=== PATIENT | male | born 1970 | race Caucasian/White ===

== ENCOUNTER → 2018-01-02 11:36 | Outpatient (CLI) | payer MEDICAID, SELFPAY ==
[2018-01-02 14:00] LABS: Erythrocyte Sedimentation Rate 1 mm/hr (0-15)
[2018-01-02 14:01] LABS: Absolute Lymphocyte Count 2.55 X10^3/ul (0.83-4.51); Absolute Neutrophil Count 3.6 X10^3/uL (2.0-7.7); Basophil# 0.02 X10^3/uL; Basophil% 0.3 % (0-1); Eosinophil# 0.25 X10^3/uL; Eosinophils% 3.6 % (0-5); Hematocrit 44.5 % (40-54); Hemoglobin 14.6 g/dl (13.0-16.5); Lymphocyte # 2.55 X10^3/ul (4.0); Lymphocyte % 36.2 % (19-41); Mean Corp Hgb Conc 32.8 g/gl (32-36); Mean Corpuscular Volume 91.4 fL (80-94); Mean Platelet Vol. 10.3 fl (6.2-12.0); Monocyte# 0.65 X10^3/uL; Monocyte% 9.2 % (0-10); Neutrophil # 3.56 X10^3/uL (2.7-7.7); Neutrophil % 50.6 % (47-70); Platelet Count 250 K/mm3 (150-450); RBC Distribution Width CV 13.7 % (11.6-14.6); Red Blood Count 4.87 M/mm3 (4.6-6.2)
[2018-01-02 14:02] LABS: POSITIVE COUNT NO; POSITIVE DIFFERENTIAL NO; POSITIVE MORPHOLOGY NO
[2018-01-02 14:25] LABS: Vitamin B12 328 pg/mL (211-911); Vitamin D,25 Hydroxy 16.5 ng/mL (29.95-100.01)
[2018-01-02 14:28] LABS: ALB/GLOB Ratio 1.2 RATIO (0.9-2.4); AST(SGOT) 20 U/L (15-37); Alanine Aminotransfer ALT/SGPT 26 U/L (16-61); Alkaline Phosphatase 48 U/L (45-117); Anion Gap 8 (5-15); BUN 15 mg/dL (7-18); BUN/Creat Ratio 15.9 RATIO (10-20); CRP < 2.90 mg/L (0.0-3.0); Calcium,Total 8.9 mg/dL (8.5-10.1); Chloride 106 mmol/L (98-107); Cholesterol 148 mg/dL (200); Creatinine, Serum 0.94 mg/dL (0.70-1.30); EST Glomerular Filtration Rate 91 mL/min (>60); Est Glom Filt Rate - Afr Amer 111 mL/min (>60); Globulin 3.3 g/dL (2.2-4.2); Glucose 65 mg/dL (74-106); High Density Lipoprotein 41 mg/dL; Potassium 3.9 mmol/L (3.5-5.1); Protein, Total 7.3 g/dL (6.4-8.2); Sodium Level 141 mmol/L (136-145); Triglycerides 92 mg/dL; Very Low Density Lipoprotein 18 mg/dL (5-40)
== END ==
PROVIDERS: Family Provider Family Medicine; PCP Family Medicine; Visit Provider Family Medicine
DX: R53.83 Other fatigue (principal); M79.7 Fibromyalgia; E66.9 Obesity, unspecified
CPT/HCPCS: 36415; 80053; 80061; 82306; 82607; 84443; 85025; 85652; 86140

== ENCOUNTER → 2018-01-30 19:50 | Outpatient (CLI) | payer MEDICAID, SELFPAY ==
[2018-01-24 12:27] VITALS: BMI 35.2
== END ==
PROVIDERS: Family Provider Family Medicine; PCP Family Medicine; Visit Provider Internal Medicine Critical Care Medicine
DX: G47.33 Obstructive sleep apnea (adult) (pediatric) (principal)
CPT/HCPCS: 95810

== ENCOUNTER → 2019-11-18 14:00 | Outpatient (CLI) | payer MEDICAID, SELFPAY ==
[2018-01-24 12:27] VITALS: BMI 35.2
[2019-11-18 17:12] LABS: ALB/GLOB Ratio 1.1 RATIO (0.9-2.4); AST(SGOT) 29 U/L (15-37); Alanine Aminotransfer ALT/SGPT 44 U/L (16-61); Albumin, Serum 3.9 g/dL (3.2-5.0); Alkaline Phosphatase 63 U/L (45-117); Anion Gap 5 (5-15); BUN 17 mg/dL (7-18); BUN/Creat Ratio 18.9 RATIO (10-20); CPK Total, Creatine Kinase 134 U/L (39-308); CRP < 2.90 mg/L (0.0-3.0); Chloride 106 mmol/L (98-107); EST Glomerular Filtration Rate 96 mL/min (>60); Est Glom Filt Rate - Afr Amer 116 mL/min (>60); Globulin 3.4 g/dL (2.2-4.2); Glucose 71 mg/dL (74-106); Potassium 4.2 mmol/L (3.5-5.1); Protein, Total 7.3 g/dL (6.4-8.2); Sodium Level 139 mmol/L (136-145); Thyroid Stim Hormone (TSH) 1.61 uIU/mL (0.358-3.74)
[2019-11-18 17:14] LABS: Absolute Neutrophil Count 3.9 X10^3/uL (2.0-7.7); Basophil# 0.05 X10^3/uL; Basophil% 0.7 % (0-1); Eosinophil# 0.39 X10^3/uL; Eosinophils% 5.5 % (0-5); Lymphocyte % 28.1 % (19-41); Mean Corp Hgb Conc 33.3 g/dL (32-36); Mean Corpuscular Hgb 31.4 pg (27.0-32.0); Mean Corpuscular Volume 94.1 fL (80-94); Mean Platelet Vol. 9.9 fl (6.2-12.0); Monocyte# 0.75 X10^3/uL; Monocyte% 10.5 % (0-10); NRBC Flagged by Analyzer 0 % (0-5); Neutrophil # 3.85 X10^3/uL (2.7-7.7); Neutrophil % 54.1 % (47-70); Platelet Count 280 K/mm3 (150-450); RBC Distribution Width CV 13.2 % (11.6-14.6); RBC Distribution Width SD 46.3 fl (35.1-43.9); White Blood Count 7.1 K/mm3 (4.4-11.0)
[2019-11-18 17:27] LABS: Erythrocyte Sedimentation Rate 3 mm/hr (0-15)
[2019-11-18 17:40] LABS: Vitamin B12 451 pg/mL (211-911); Vitamin D,25 Hydroxy 31.9 ng/mL
[2019-11-20 15:21] LABS: ANTINUCLEAR ANTIBODIES DIRECT Negative (Negative)
== END ==
PROVIDERS: PCP Family Medicine; Referring Provider Family Medicine; Visit Provider Family Medicine
DX: M62.81 Muscle weakness (generalized) (principal); R53.83 Other fatigue; M79.7 Fibromyalgia; E55.9 Vitamin D deficiency, unspecified
CPT/HCPCS: 36415; 80053; 82306; 82550; 82607; 84443; 85025; 85652; 86038; 86140

== ENCOUNTER → 2020-03-16 | Outpatient (CLI) | payer MEDICAID, SELFPAY | END | disposition home or self-care (01) | LOC: SL 21:28 | PROVIDERS: PCP Family Medicine; Visit Provider Internal Medicine Critical Care Medicine | DX: G47.33 Obstructive sleep apnea (adult) (pediatric) (principal) | CPT/HCPCS: 95811 ==

== ENCOUNTER → 2020-03-26 13:45 | Outpatient (CLI) | payer MEDICAID, SELFPAY | PROVIDERS: PCP Family Medicine; Visit Provider Nurse Practitioner Acute Care | DX: Z44.8 Encounter for fitting and adjustment of other external prosthetic devices (principal) ==

== ENCOUNTER → 2020-04-09 15:33 | Outpatient (CLI) | payer MEDICAID, SELFPAY ==
[2020-04-09 17:29] LABS: Absolute Lymphocyte Count 2.39 X10^3/uL (0.83-4.51); Absolute Neutrophil Count 3.3 X10^3/uL (2.0-7.7); Basophil# 0.03 X10^3/uL; Basophil% 0.4 % (0-1); Eosinophil# 0.27 X10^3/uL; Hematocrit 43.9 % (40-54); Hemoglobin 14.3 g/dL (13.0-16.5); Lymphocyte # 2.39 X10^3/ul (4.0); Lymphocyte % 35.3 % (19-41); Mean Corp Hgb Conc 32.6 g/dL (32-36); Mean Corpuscular Hgb 29.8 pg (27.0-32.0); Mean Corpuscular Volume 91.5 fL (80-94); Mean Platelet Vol. 9.7 fl (6.2-12.0); Monocyte% 10.3 % (0-10); NRBC Flagged by Analyzer 0 % (0-5); Neutrophil # 3.33 X10^3/uL (2.7-7.7); Neutrophil % 49.1 % (47-70); Platelet Count 254 K/mm3 (150-450); RBC Distribution Width CV 13.2 % (11.6-14.6); RBC Distribution Width SD 44.3 fl (35.1-43.9); White Blood Count 6.8 K/mm3 (4.4-11.0)
[2020-04-09 18:05] LABS: ALB/GLOB Ratio 1.2 RATIO (0.9-2.4); AST(SGOT) 24 U/L (15-37); Alanine Aminotransfer ALT/SGPT 34 U/L (16-61); Albumin, Serum 3.8 g/dL (3.2-5.0); Alkaline Phosphatase 74 U/L (45-117); Anion Gap 3 (5-15); BUN 19 mg/dL (7-18); BUN/Creat Ratio 19.3 RATIO (10-20); Calcium,Total 8.9 mg/dL (8.5-10.1); Chloride 105 mmol/L (98-107); Creatinine, Serum 0.98 mg/dL (0.70-1.30); EST Glomerular Filtration Rate 86 mL/min (>60); Est Glom Filt Rate - Afr Amer 104 mL/min (>60); Globulin 3.2 g/dL (2.2-4.2); Glucose 87 mg/dL (74-106); Potassium 4.1 mmol/L (3.5-5.1); Sodium Level 139 mmol/L (136-145)
[2020-04-09 18:35] LABS: Vitamin D,25 Hydroxy 30.3 ng/mL
== END ==
PROVIDERS: PCP Family Medicine; Referring Provider Family Medicine; Visit Provider Family Medicine
DX: E55.9 Vitamin D deficiency, unspecified (principal); Z72.0 Tobacco use
CPT/HCPCS: 36415; 80053; 82306; 85025

== ENCOUNTER 2020-06-21 20:13 | Inpatient (IN) | payer MEDICAID, SELFPAY ==
[2020-06-04 14:02] VITALS: BMI 38.7
[2020-06-21] VITALS (10 sets, daily range): BP systolic 103–132; BP diastolic 84–113; PULSE 106–116; RESP 11–30; TEMP 36.2–36.4; O2SAT 93–100; BMI 39.0; BMI 38.0
--- NOTE | 2020-06-21 20:20 | EKG12_ITS ---
Test Reason : CP Blood Pressure : / mmHG Vent. Rate : 108 BPM Atrial Rate : 108 BPM P-R Int : 192 ms QRS Dur : 104 ms QT Int : 330 ms P-R-T Axes : 069 116 054 degrees QTc Int : 442 ms Sinus tachycardia Left posterior fascicular block Abnormal ECG Confirmed by JUAN ALBERTO REBOLLEDO, CHUCK ([id number]), development editor ARSH VALDEZ ([id number]) on 06/24/2020 8:50:32 AM Referred By: KHOI Confirmed By:CHUCK AVEDNANO MD
--- NOTE | 2020-06-21 20:22 | ED.VIS.GEN ---
History of Present Illness Chief Complaint: Shortness of Breath Informant: Patient Onset: Today Context: Sudden Onset Current Severity: Moderate Maximum Severity: Moderate Narrative: Patient presents with sudden onset of shortness of breath approximately 1 hour prior to arrival. He denies chest pain. He states he was taking the trash out at the time, nothing overtly strenuous. Patient denies history of lung problems. He is a longtime smoker. No history of blood clots, but does state that his right lower leg has been swollen and sore recently. - Past Medical History (1) Bipolar 1 disorder, depressed Status: Chronic (2) Fibromyalgia Status: Chronic (3) GEOFF (generalized anxiety disorder) Status: Chronic (4) FERNANDO (obstructive sleep apnea) Status: Chronic Past Medical History - Allergies and Home Meds Allergies/Adverse Reactions: Allergies No Known Allergies Allergy (Verified 06/21/20 20:15) Primary Care Physician: Elliott Urbina MD [Primary Care Provider] - Prior records reviewed: Yes Smoking Status: Current some day smoker Review of Systems General: Denies: Chills, Fever Eyes: Denies: Visual changes - bilaterally ENT: Denies: Bilateral ear pain Cardiovascular: Denies: Chest pain Respiratory: Reports: Dyspnea. Denies: Cough Gastrointestinal: Denies: Abdominal pain, Nausea, Vomiting, Diarrhea Musculoskeletal: Reports: Swelling, Extremity Pain Skin: Denies: Rash Neurological: Denies: Headache Hematologic: Denies: Easy bruising, Easy bleeding Allergy: Denies: Uticaria Physical Exam Vital Signs/Narrative: Vital Signs Temp Pulse Resp BP Pulse Ox 06/21/20 20:15 97.6 F L 106 H 20 H 132/95 H 93 Inital Vital Signs reviewed: Yes General: Well nourished, Well developed Head: Normocephalic Neck: Supple Cardiovascular: Tachycardia Respiratory: Diminished Abdomen: Soft, Nontender Extremities: Edema - Mild edema right lower extremity Neurological: Alert, Oriented x3 Psychological: Normal affect Diagnostic/Tx/Re-eval Chest X-Ray - ED: 1 View, Read by ED Physician, Normal, Heart, Lungs, Mediastinum 06/21/20 20:35 Chest 1 View (Portable) [RAD] Stat 06/21/20 20:50 CTA Chest W/WO Contrast [CT] Stat Laboratory Results 06/21/20 06/21/20 20:20 20:20 WBC 7.5 RBC 5.08 Hgb 15.1 Hct 47.3 MCV 93.1 MCH 29.7 MCHC 31.9 L RDW Std Deviation 44.4 H RDW Coeff of Scarlet 13.0 Plt Count 224 MPV 9.3 Immature Gran % (Auto) 0.800 Neut % (Auto) 56.8 Lymph % (Auto) 28.6 [place] % (Auto) 11.7 H Eos % (Auto) 1.7 Baso % (Auto) 0.4 Absolute Neuts (auto) 4.3 Absolute Lymphs (auto) 2.15 Nucleated RBC % 0 Sodium 139 Potassium 4.7 Chloride 107 Carbon Dioxide 29.0 Anion Gap 3 L BUN 15 Creatinine 1.03 Estim Creat Clear Calc 96.27 Est GFR (MDRD) Af Amer 99 Est GFR (MDRD) Non-Af 82 BUN/Creatinine Ratio 14.6 Glucose 94 Calcium 8.9 Troponin I 0.068 H - EKG Initial EKG Interpretation: Sinus Tachycardia - Sinus tach at 108. No acute ST change. - Medical Decision Making Patient had portable chest x-ray obtained on arrival. Per my interpretation no obvious abnormality noted. Due to the patient's rather abrupt onset of symptoms PE was certainly in the differential, especially with patient complaining of right leg pain and swelling the last several days. Lab work was obtained and renal function was adequate. CTA reveals evidence of saddle embolus with bilateral main branch PEs per my interpretation. Heparin bolus and drip have been ordered. I will speak with hospitalist regarding admission. - Critical Care Time Critical care time (excluding procedures): 30-74 minutes ED Disposition - Plan for ED Patient: Disposition: Acute Care Hospital [facility] Diagnosis: Pulmonary emboli Referrals: Elliott Urbina MD [Primary Care Provider] -
--- NOTE | 2020-06-21 20:35 | RAD_ITS ---
STUDY: X-RAY CHEST REASON FOR EXAM: Male, 50 years old. sob TECHNIQUE: Single AP portable view of the chest. COMPARISON: None. FINDINGS: The lungs are clear and expanded. There is no demonstrated pleural abnormality. Normal size heart. Normal mediastinum and louis. Normal visualized pulmonary arteries. Normal visualized aortic arch and descending thoracic aorta. Normal visualized thoracic spine. Normal visualized ribs, clavicles, and shoulders. There is no demonstrated abnormality of the visualized soft tissue structures of the upper abdomen. RAD/Chest 1 View (Portable) IMPRESSION: Normal x-ray examination of the chest. Electronically Signed: Debra Hernandez MD at 21:22 EDT Tel , Service support ,
[2020-06-21] MEDS: 0.9% Normal Saline 1,000 ML 150 ML IV (20:43)
[2020-06-21 20:46] LABS: Anion Gap 3 (5-15); BUN 15 mg/dL (7-18); BUN/Creat Ratio 14.6 RATIO (10-20); Calcium,Total 8.9 mg/dL (8.5-10.1); Chloride 107 mmol/L (98-107); Creatinine, Serum 1.03 mg/dL (0.70-1.30); EST Glomerular Filtration Rate 82 mL/min (>60); Est Glom Filt Rate - Afr Amer 99 mL/min (>60); Estimated Creatinine Clearance 96.27 ml/min; Glucose 94 mg/dL (74-106); Potassium 4.7 mmol/L (3.5-5.1); Sodium Level 139 mmol/L (136-145)
--- NOTE | 2020-06-21 20:50 | CT_ITS ---
We are attempting to reach an attending provider to discuss findings. An addendum with communication details will be sent when the communication is complete. STUDY: CTA CHEST REASON FOR EXAM: Male, 50 years old. sob RADIATION DOSAGE (If Supplied By Facility): CTDIvol = ( 18.60 ) mGy, DLP = ( 628.51 ) mGycm TECHNIQUE: The examination was performed with the intravenous administration of IV 100mL Isovue-370. Post-processing of the angiographic images was performed, with multiplanar reformation and 3D reconstruction. Individualized dose optimization techniques were used for this CT. COMPARISON: None. FINDINGS: Heart size and pericardium are unremarkable. The aorta is normal in caliber. No aneurysm or dissection. There is no mediastinal mass or adenopathy. There is no hilar or axillary adenopathy. Sagittal pulmonary embolus. Moderately extensive segmental and subsegmental emboli in the left lower lobe. Mild subsegmental emboli in the left upper lobe. Extensive vascular cut off in the right upper lobe. Mild subsegmental emboli in the right middle lobe. Mild right lower lobe segmental emboli. There is no pleural effusion. There is no pulmonary consolidation mass, interstitial or cystic disease. Calcified granulomas in the right upper lobe. Visualized abdomen is unremarkable. There is no osseous abnormality. CT/CTA Chest W/WO Contrast IMPRESSION: 1. Extensive bilateral pulmonary emboli including saddle embolus. 2. Old granulomatous disease. Electronically Signed: Debra Hernandez MD at 21:26 EDT Tel , Service support ,
[2020-06-21 20:52] LABS: Absolute Lymphocyte Count 2.15 X10^3/uL (0.83-4.51); Absolute Neutrophil Count 4.3 X10^3/uL (2.0-7.7); Basophil# 0.03 X10^3/uL; Basophil% 0.4 % (0-1); Eosinophil# 0.13 X10^3/uL; Eosinophils% 1.7 % (0-5); Hematocrit 47.3 % (40-54); Hemoglobin 15.1 g/dL (13.0-16.5); Lymphocyte # 2.15 X10^3/ul (0.83-4.51); Lymphocyte % 28.6 % (19-41); Mean Corp Hgb Conc 31.9 g/dL (32-36); Mean Corpuscular Hgb 29.7 pg (27.0-32.0); Mean Corpuscular Volume 93.1 fL (80-94); Mean Platelet Vol. 9.3 fl (6.2-12.0); Monocyte# 0.88 X10^3/uL; Monocyte% 11.7 % (0-10); NRBC Flagged by Analyzer 0 % (0-5); Neutrophil # 4.28 X10^3/uL (2.7-7.7); Neutrophil % 56.8 % (47-70); Platelet Count 224 K/mm3 (150-450); RBC Distribution Width SD 44.4 fl (35.1-43.9); Red Blood Count 5.08 M/mm3 (4.6-6.2); White Blood Count 7.5 K/mm3 (4.4-11.0)
[2020-06-21] MEDS: Heparin Injection (Vial) 5,000 UNIT/ML VIAL 4000 UNIT IV (21:15)
[2020-06-21] MEDS: HEPARIN/D5w 25,000 UNITS 25,000 UNITS/250 ML IV.SOLN. 10 UNITS IV (21:15)
--- NOTE | 2020-06-21 21:24 | HP.PCM_ITS ---
Problem List (1) Pulmonary emboli Status: Acute Qualifiers: Pulmonary embolism type: saddle Chronicity: acute Acute cor pulmonale presence: unspecified Qualified Code(s): I26.92 - Saddle embolus of pulmonary artery without acute cor pulmonale (2) FERNANDO (obstructive sleep apnea) Status: Chronic (3) BMI 38.0-38.9,adult Status: Chronic (4) Fibromyalgia Status: Chronic (5) Bipolar 1 disorder, depressed Status: Chronic (6) Tobacco use Status: Chronic History of Present Illness Date of Admission: 06/21/20 Chief Complaint: Sudden onset dyspnea, hx LE edema ~ 1 month prior The patient is a 50 y/o M w/ PMHx: Obesity, FERNANDO, Anxiety and Depression/Bipolar disorder, Tobacco use who presents to the [facility] ED on 06/21/20 with history of onset RLE edema starting ~ 1 month prior and worsening over the last week but suddenly improving with over the last 30 minutes to 1 hour prior to ED arrival sudden onset severe dyspnea sensation, unable to catch his breath with occasional twinge to the right chest with deep inspiratory effort with a sensation of tightness when he tries to breathe deep with no specific chest discomfort however given not improving prompted ED evaluation. He denies any recent illness including any Covid type symptoms. He has not had any recent prolonged flights or car travel. 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 He does smoke 1/2 to 1 pack/day. He has no specific family history of clots and has never had a clot previously himself. Work-up in the ED included T 97.7, heart rate 116, BP 132/95, respiratory rate 30, 93% on room air with improvement to 99% on 2 L nasal cannula, CBC with WBC 7.5, hemoglobin 15.1, platelet 224 without marked shift, PTT pending, BMP not marked appearing, troponin 0 0.068, chest x-ray with no acute cardiopulmonary findings, CTPA pending radiology evaluation but ED interpretation with evidence of a saddle pulmonary embolus with bilateral main branch PEs, EKG with sinus tachycardia with no acute evidence of ischemia. In the ED patient initiated on heparin bolus with drip. Discussed with the ED physician and hypercoagulable panel obtained in the ED. Past Medical History Past Medical History (Chronic Problems): Chronic Problems (Last Reviewed 06/04/20 @ 14:08 by Radha Donovan [employer], [employer]) Tobacco use (Chronic) FERNANDO (obstructive sleep apnea) (Chronic) BMI 38.0-38.9,adult (Chronic) Sleep apnea (Chronic) Fibromyalgia (Chronic) Insomnia (Chronic) Bipolar 1 disorder, depressed (Chronic) GEOFF (generalized anxiety disorder) (Chronic) Arthritis (Chronic) Medical History: Medical History (Last Reviewed 06/04/20 @ 14:08 by Radha Donovan [employer], [employer]) Sleep apnea (Chronic) G47.30 Fibromyalgia (Chronic) M79.7 Vitamin D deficiency (Acute) E55.9 Insomnia (Chronic) G47.00 Bipolar 1 disorder, depressed (Chronic) F31.9 GEOFF (generalized anxiety disorder) (Chronic) F41.1 Microscopic colitis (Acute) K52.839 Arthritis (Chronic) M19.90 Fatigue (Acute) R53.83 Shoulder pain (Acute) M25.519 Difficulty balancing (Acute) R29.818 Limb weakness (Acute) R29.898 neck and back pain (Acute) Allergies No Known Allergies Allergy (Verified 06/21/20 20:15) Home Medications: Ambulatory Orders Medication Instructions Recorded ibuprofen 600 mg tablet 600 mg PO TID PRN 30 Days #90 tab 11/28/17 cholecalciferol (vitamin D3) 125 5,000 unit PO DAILY 01/23/18 mcg (5,000 unit) capsule nortriptyline 10 mg capsule 25 mg PO QHS 01/23/18 Nortriptyline HCl 50 mg PO TID 06/21/20 Surgical History: Surgical History (Last Reviewed 06/04/20 @ 14:08 by Radha Donovan [employer], [employer]) History of cholecystectomy (Resolved) Z90.49 History of tooth extraction (Resolved) K08.409 Surgical History: cholecystectomy Psychiatric History: Anxiety, Bipolar, Depression Lives: Alone Smoking Status: Current every day smoker - Patient with ongoing 1/2 pack to 1 pack/day cigarette tobacco usage since she was a teenager. Tobacco Use: Cigarettes Alcohol: Occasional Drugs: None - *Family History Maternal Family History: Family History (Last Reviewed 06/04/20 @ 14:08 by Radha Donovan [employer], [employer]) Other No pertinent family history History Items: Cancer - Patient with maternal family history of leukemia, in her 60s. Paternal Family History: Family History (Last Reviewed 06/04/20 @ 14:08 by Radha Donovan [employer], [employer]) Other No pertinent family history History Items: Diabetes - Paternal family history prediabetes., - - Paternal family history of significant vertigo, BPPV. Review of Systems Constitutional: Reports: Fatigue. Denies: Anorexia, Chills, Fever, Malaise, Weakness, Weight Change HEENT: Denies: Head Aches, Sinus Congestion, Sinus Drainage Cardiovascular: Reports: Chest Tightness, Edema. Denies: Chest Pain, Chest Pressure, Light Headedness, Orthopnea, Palpitations, Syncope Respiratory: Reports: Shortness of Breath, Shortness of breath at rest, Shortnes s of breath upon exertion. Denies: Cough, Sputum production, Wheezing Gastrointestinal: Denies: Abdominal Pain, Nausea, Vomiting Genitourinary: Denies: Dysuria Musculoskeletal: Reports: Joint Pain. Denies: Joint Tenderness Skin: Denies: Rash, Wounds Neurological: Denies: Numbness, Tingling, Focal weakness Psychiatric: Reports: Anxiety, Depression. Denies: Homicidal Ideations, Suicidal Ideations Hematologic/ Lymphatic: Denies: Easy Bruising, Easy Bleeding VTE Information - Inpt Only VTE Present on Admission: No VTE Mechan Device Prophylaxis: SCD's VTE Pharm Prophylaxis ordered?: Yes Patient Problems: Active and Suspected Problems (Last Reviewed 06/04/20 @ 14:08 by Radha Donovan [employer], [employer]) Pulmonary emboli (Acute) Subjective: Patient seated upright in the ED bed, fatigued otherwise no acute distress. Objective: Physical Examination: General: awake, alert, oriented x 3 and cooperative, seated upright in the ED bed, fatigued otherwise no acute distress, no evidence of any respiratory distress. Skin: normal color, turgor, no icterus, cyanosis. HEENT: AT/NC, EOMI, PERRLA, MMM, no carotid bruits or JVD noted; however, thickened neck makes examination difficult. Lungs: CTA bilaterally, moderate effort, mild decrease BL bases, no rales, ronchi or wheezing. Heart: Mildly tachycardic with regular rhythm; no gallop, rub audible. Abdomen: soft, obese, NTTP, ND, normal BS, no obvious HSM; however, habitus makes examination difficult. Extremities: no cyanosis or clubbing, improved right lower extremity swelling, nonpitting. Neurological: patient awake, alert, oriented as noted; cognitive function intact; pupils equally reactive to light and accomodation; cranial nerves II-XII grossly normal, moving all 4 extremities, no focal deficits, strength moderately to severely global decrease secondary to acute presentation. Psychiatric: affect appears fatigued otherwise normal, no acute evidence of depressive or anxiety feelings. - Physical Exam Vitals/I&O's: Vital Signs Temp Pulse Resp BP Pulse Ox 97.6 F L 107 H 19 H 130/100 H 99 06/21/20 20:15 06/21/20 21:16 06/21/20 21:16 06/21/20 21:16 06/21/20 21:16 Oxygen Flow Rate (L/min) 2 Oxygen Delivery Method Nasal Cannula Weight: 287 lb 14.779 oz Body Mass Index (BMI) 39.0 Laboratory Results 06/21/20 20:20: WBC 7.5, RBC 5.08, Hgb 15.1, Hct 47.3, MCV 93.1, MCH 29.7, MCHC 31.9 L, RDW Std Deviation 44.4 H, RDW Coeff of Scarlet 13.0, Plt Count 224, MPV 9.3, Immature Gran % (Auto) 0.800, Neut % (Auto) 56.8, Lymph % (Auto) 28.6, [place] % (Auto) 11.7 H, Eos % (Auto) 1.7, Baso % (Auto) 0.4, Absolute Neuts (auto) 4.3, Absolute Lymphs (auto) 2.15, Nucleated RBC % 0 06/21/20 20:20: Sodium 139, Potassium 4.7, Chloride 107, Carbon Dioxide 29.0, Anion Gap 3 L, BUN 15, Creatinine 1.03, Estim Creat Clear Calc 96.27, Est GFR (MDRD) Af Amer 99, Est GFR (MDRD) Non-Af 82, BUN/Creatinine Ratio 14.6, Glucose 94, Calcium 8.9, Troponin I 0.068 H 06/21/20 20:20: APTT Pending Current Medications Heparin Sodium (Porcine) (Heparin Injection (Vial) 5,000 Unit/Ml Vial) 0 unit IV UD PRN; Protocol PRN Reason: dose adjustment Sodium Chloride () 1,000 mls @ 150 mls/hr IV .Q6H40M [facility] Last Admin: 06/21/20 20:43 Dose: 150 mls/hr Documented by: Heparin Sodium/Dextrose () 25,000 units in 250 mls @ 10 mls/hr IV .Q25H [facility]; Protocol Last Admin: 06/21/20 21:15 Dose: 1,000 units/hr, 10 mls/hr Documented by: Assessment/Plan All Active Problems (Last Reviewed 06/04/20 @ 14:08 by Radha Donovan [employer], [employer]) Pulmonary emboli (Acute) History of cholecystectomy (Resolved) History of tooth extraction (Resolved) Vitamin D deficiency (Acute) Microscopic colitis (Acute) Fatigue (Acute) Shoulder pain (Acute) Difficulty balancing (Acute) Limb weakness (Acute) neck and back pain (Acute) Right shoulder pain (Acute) Folliculitis (Acute) The patient is a 50 y/o M w/ PMHx: Obesity, FERNANDO, Anxiety and Depression/Bipolar disorder, Tobacco use who presents to the [facility] ED on 06/21/20 with history of onset RLE edema starting ~ 1 month prior and worsening over the last week but suddenly improving with over the last 30 minutes to 1 hour prior to ED arrival sudden onset severe dyspnea sensation, unable to catch his breath with occasional twinge to the right chest with deep inspiratory effort with a sensation of tightness when he tries to breathe deep. 1. Acute Dyspnea, Hypoxia secondary to Severe BL Saddle Pulmonary Embolism: ED evaluation w/ troponin 0 0.068, chest x-ray with no acute cardiopulmonary findings, CTPA pending radiology evaluation but ED interpretation with evidence of a saddle pulmonary embolus with bilateral main branch PEs, EKG with sinus tachycardia with no acute evidence of ischemia. No family history of hypercoaguable state. Will admit to the ICU, maintain on cardiac telemetry, obtain ECHO, BNP. Discussed with ED physician and will obtain hypercoaguable panel. Will continue therapeutic heparin drip regimen with pending AM insurance oral regimen investigation. Will consult rail flaw detector operator. COVID antibodies requested to assist in discerning risk for PE. 2. Fibromyalgia: Patient following with a maintenance planner, will continue patient home nortriptyline regimen which he had been placed on for this disorder. 3. Anxiety depression/bipolar disorder: Notes this is significantly improved since treatment of his fibromyalgia, not on regimen specifically for this disorder. 4. Tobacco Abuse: Encouraged cessation, inpatient consultation per RT, NR if desired. 5. Obesity: Weight loss and lifestyle changes encouraged. 6. Reported history FERNANDO: We will encourage CPAP nightly if amenable. 7. DVT prophylaxis: SCDs, continue heparin drip as noted. Inpatient E&M: [id number] Init Hosp L3
[2020-06-21 21:26] LABS: Partial Thromboplast Time 31.6 Seconds (24.1-36.2)
--- NOTE | 2020-06-21 22:06 | ECHOD_ITS ---
Reason For Study: Saddle PE Procedure This was a 2D Doppler, Color Flow transthoracic echocardiogram. The study was technically difficult. Exam performed portable in ICU/CCU. Left Ventricle Normal LV size. Left ventricular systolic function is normal. The estimated ejection fraction is 60 %. Septal bounce. Transmitral doppler flow suggestive of impaired relaxation of left ventricle. No regional wall motion abnormalities noted. Right Ventricle Normal RV size. Normal systolic function. Atria Normal left atrium. Normal right atrium. No doppler evidence for ASD. Mitral Valve There is no mitral annular calcification. Normal mitral valve. Trivial mitral valve insufficiency. Tricuspid Valve Normal tricuspid valve. Mild tricuspid valve insufficiency. Right ventricular systolic pressure estimated to be 36 mmHg. Aortic Valve The aortic valve is not well visualized. Pulmonic Valve The pulmonic valve is not well visualized. Great Vessels Normal sized aortic root. Pericardium/Pleural No pericardial effusion. MMode/2D Measurements & Calculations LVIDd: 3.9 cm IVSd: 1.3 cm Ao root diam: 3.6 cm LVIDs: 2.6 cm LVPWd: 1.2 cm LA dimension: 3.7 cm FS: 33.8 % LAV(MOD-bp): 60.4 ml LA A4 area: 19.1 cm2 RA A4 area: 17.6 cm2 LAV(MOD-bp) Indexed: 24.6 ml/m2 LAV(MOD-sp2): 60.3 ml LAV(MOD-sp4): 50.1 ml Time Measurements MV dec time: 0.22 sec Doppler Measurements & Calculations MV E max cody: 47.7 cm/sec Lat Peak E' Cody: 8.3 cm/sec Ao V2 max: 146.2 cm/sec MV A max cody: 77.8 cm/sec E/E' lat: 5.7 Ao max P.6 mmHg MV E/A: 0.61 LV V1 max: 110.2 cm/sec PA V2 max: 84.8 cm/sec TR max cody: 287.4 cm/sec LV V1 max P.9 mmHg TR max P.0 mmHg ECHO/Echo Complete Interpretation Summary The study was technically difficult. Left ventricular systolic function is normal. The estimated ejection fraction is 60 %. Septal bounce. Trivial mitral valve insufficiency. Mild tricuspid valve insufficiency. Right ventricular systolic pressure estimated to be 36 mmHg. Transmitral doppler flow suggestive of impaired relaxation of left ventricle Ordering Physician: France Freire Referring Physician: Elliott Urbina Performed By: Guicho Corona RCS
[2020-06-21 23:23] LABS: Partial Thromboplast Time 79.1 Seconds (24.1-36.2)
[2020-06-21 23:29] LABS: BNP,B-Type NATRIURETIC PEPTIDE 3.9 pg/mL (0-100)
[2020-06-21 23:43] LABS: Magnesium 1.9 mg/dL (1.6-2.6)
[2020-06-21] MEDS: 0.9% Saline Lock 10 ML Syringe IV (23:44)
[2020-06-21] MEDS: Famotidine 20 MG Tablet PO (23:44)
[2020-06-21] MEDS: Nortriptyline 25 MG Capsule 50 MG PO (23:45)
[2020-06-21] MEDS: 0.9% Normal Saline 1,000 ML 100 ML IV (23:46)
[2020-06-21] MEDS: HEPARIN/D5w 25,000 UNITS 25,000 UNITS/250 ML IV.SOLN. 17 UNITS IV (23:48)
[2020-06-21 23:52] LABS: Probe Check PASS; Specimen Processing Control PASS
[2020-06-22] VITALS (22 sets, daily range): BP systolic 106–140; BP diastolic 70–108; PULSE 81–114; RESP 13–23; TEMP 36.2–37.2; O2SAT 93–100
--- NOTE | 2020-06-22 00:23 | CPS ---
Pt refuses CPAP at this time
[2020-06-22] MEDS: Nortriptyline 25 MG Capsule 50 MG PO ×3 (06:23→22:17)
[2020-06-22 06:43] LABS: Partial Thromboplast Time 65.9 Seconds (24.1-36.2)
[2020-06-22 06:55] LABS: Absolute Lymphocyte Count 2.59 X10^3/uL (0.83-4.51); Absolute Neutrophil Count 6.4 X10^3/uL (2.0-7.7); Basophil# 0.04 X10^3/uL; Basophil% 0.4 % (0-1); Eosinophil# 0.19 X10^3/uL; Eosinophils% 1.8 % (0-5); Hematocrit 43.1 % (40-54); Hemoglobin 14.3 g/dL (13.0-16.5); Lymphocyte # 2.59 X10^3/ul (0.83-4.51); Lymphocyte % 25.1 % (19-41); Mean Corp Hgb Conc 33.2 g/dL (32-36); Mean Corpuscular Hgb 30.5 pg (27.0-32.0); Mean Corpuscular Volume 91.9 fL (80-94); Mean Platelet Vol. 9.4 fl (6.2-12.0); Monocyte# 1.04 X10^3/uL; Monocyte% 10.1 % (0-10); NRBC Flagged by Analyzer 0 % (0-5); Neutrophil # 6.38 X10^3/uL (2.7-7.7); Neutrophil % 61.8 % (47-70); Platelet Count 198 K/mm3 (150-450); RBC Distribution Width SD 43.6 fl (35.1-43.9); Red Blood Count 4.69 M/mm3 (4.6-6.2); White Blood Count 10.3 K/mm3 (4.4-11.0)
[2020-06-22 07:11] LABS: ALB/GLOB Ratio 1.2 RATIO (0.9-2.4); AST(SGOT) 22 U/L (15-37); Alanine Aminotransfer ALT/SGPT 30 U/L (16-61); Albumin, Serum 3.4 g/dL (3.2-5.0); Alkaline Phosphatase 65 U/L (45-117); Anion Gap 7 (5-15); BUN 12 mg/dL (7-18); BUN/Creat Ratio 12.7 RATIO (10-20); Chloride 105 mmol/L (98-107); Creatinine, Serum 0.94 mg/dL (0.70-1.30); EST Glomerular Filtration Rate 91 mL/min (>60); Est Glom Filt Rate - Afr Amer 110 mL/min (>60); Estimated Creatinine Clearance 105.48 ml/min; Globulin 2.9 g/dL (2.2-4.2); Glucose 138 mg/dL (74-106); Potassium 3.6 mmol/L (3.5-5.1); Protein, Total 6.3 g/dL (6.4-8.2); Sodium Level 140 mmol/L (136-145)
--- NOTE | 2020-06-22 07:20 | PCM.CON.CC ---
Problem List (1) Pulmonary emboli Status: Acute Qualifiers: Pulmonary embolism type: saddle Chronicity: acute Acute cor pulmonale presence: with acute cor pulmonale Qualified Code(s): I26.02 - Saddle embolus of pulmonary artery with acute cor pulmonale (2) Tobacco use Status: Chronic (3) FERNANDO (obstructive sleep apnea) Status: Chronic (4) BMI 38.0-38.9,adult Status: Chronic (5) History of cholecystectomy Status: Resolved (6) History of tooth extraction Status: Resolved (7) Fibromyalgia Status: Chronic (8) Bipolar 1 disorder, depressed Status: Chronic (9) GEOFF (generalized anxiety disorder) Status: Chronic (10) Arthritis Status: Chronic (11) Fatigue Status: Acute (12) neck and back pain Status: Acute (13) Right shoulder pain Status: Acute Reason for Consult Date of Consultation: 06/22/20 Reason for Consultation: Pulmonary embolism History of Present Illness: The patient is a 50 year old M, with past medical history listed below, who presented to [facility] on 06/21/2020 secondary to an acute onset of shortness of breath approximate 1 hour prior to arrival. Patient had denied chest pain initially on presentation to the ER. Patient states that he was taking out the trash and developed acute onset of shortness of breath. Patient denied any history of previous lung pathology, but is a lifelong smoker. Patient has no history of blood clots, but does state that his right lower leg was acting like cellulitis that had in the past. Patient reports that this was significantly swollen and tender approximately 3 to 4 weeks ago. The pain improved suddenly, so medical opinion was not requested. Patient did report his mobility was decreased during this period of time. In the ER, patient was noted to be tachycardic at 106 bpm and normotensive at 132/95. Patient was saturating 93%. Chest x-ray was within normal limits and laboratory work-up was relatively unremarkable. Patient did have a marginally elevated troponin at 0.068. Given high clinical suspicion for pulmonary embolism, CTA was obtained verifying the presence of a saddle embolism. Patient was started on heparin and admitted to the hospital for further evaluation. Since being in the intensive care unit, patient reports relative stability in his respiratory status. Patient does have dyspnea on exertion and is now reporting a chest heaviness in the middle of his chest. Patient is not reporting any radiation, diaphoresis or palpitations associated with this event. No changes in telemetry have been noted. Patient states he is never had a pulmonary function test previously. Patient does smoke at baseline. Patient denies any history or family history of hypercoagulable states. Patient has had cellulitis of his lower extremity, but this was not associated with a DVT per his recollection. Review of systems otherwise negative from a constitutional, HEENT, respiratory, cardiovascular, GI, genitourinary, musculoskeletal, skin, neurologic, psychiatric and hematologic system unless stated above. Past Medical History Past Medical History (Chronic Problems): Chronic Problems (Last Reviewed 06/04/20 @ 14:08 by Radha Donovan UNLOADING CHECKER, UNLOADING CHECKER-C) Tobacco use (Chronic) FERNANDO (obstructive sleep apnea) (Chronic) BMI 38.0-38.9,adult (Chronic) Sleep apnea (Chronic) Fibromyalgia (Chronic) Insomnia (Chronic) Bipolar 1 disorder, depressed (Chronic) GEOFF (generalized anxiety disorder) (Chronic) Arthritis (Chronic) Medical History: Medical History (Last Reviewed 06/04/20 @ 14:08 by Radha Donovan UNLOADING CHECKER, UNLOADING CHECKER-C) Sleep apnea (Chronic) G47.30 Fibromyalgia (Chronic) M79.7 Vitamin D deficiency (Acute) E55.9 Insomnia (Chronic) G47.00 Bipolar 1 disorder, depressed (Chronic) F31.9 GEOFF (generalized anxiety disorder) (Chronic) F41.1 Microscopic colitis (Acute) K52.839 Arthritis (Chronic) M19.90 Fatigue (Acute) R53.83 Shoulder pain (Acute) M25.519 Difficulty balancing (Acute) R29.818 Limb weakness (Acute) R29.898 neck and back pain (Acute) Allergies No Known Allergies Allergy (Verified 06/21/20 20:15) Home Medications: Ambulatory Orders Medication Instructions Recorded ibuprofen 600 mg tablet 600 mg PO TID PRN 30 Days #90 tab 11/28/17 cholecalciferol (vitamin D3) 125 5,000 unit PO DAILY 01/23/18 mcg (5,000 unit) capsule Nortriptyline HCl 50 mg PO TID 06/21/20 Surgical History: Surgical History (Last Reviewed 06/04/20 @ 14:08 by Radha Donovan NP, UNLOADING CHECKER-C) History of cholecystectomy (Resolved) Z90.49 History of tooth extraction (Resolved) K08.409 Surgical History: cholecystectomy Psychiatric History: Anxiety, Bipolar, Depression Lives: Alone Smoking Status: Current every day smoker Tobacco Use: Cigarettes Alcohol: Occasional Drugs: None - *Family History Maternal Family History: Family History (Last Reviewed 06/04/20 @ 14:08 by Radha Donovan UNLOADING CHECKER, UNLOADING CHECKER-C) Other No pertinent family history History Items: Cancer - Patient with maternal family history of leukemia, in her 60s. Paternal Family History: Family History (Last Reviewed 06/04/20 @ 14:08 by Radha Donovan NP, UNLOADING CHECKER-C) Other No pertinent family history History Items: Diabetes - Paternal family history prediabetes., - - Paternal family history of significant vertigo, BPPV. Review of Systems Comment: See HPI Patient Problems: Active and Suspected Problems (Last Reviewed 06/04/20 @ 14:08 by Radha Donovan NP, UNLOADING CHECKER-C) Pulmonary emboli (Acute) Objective: All imaging was personally reviewed. Patient does have extensive clot burden noted on CTA of the chest. Patient does have a granuloma in the right lung. Patient has been seen in our office and was diagnosed with obstructive sleep apnea. - Physical Exam Vitals/I&O's: Vital Signs Temp Pulse Resp BP Pulse Ox 36.2 C L 97 14 127/74 H 98 06/22/20 00:00 06/22/20 07:00 06/22/20 07:00 06/22/20 07:00 06/22/20 07:00 Oxygen Flow Rate (L/min) 2 Oxygen Delivery Method Nasal Cannula Weight: 127.097 kg Body Mass Index (BMI) 38.0 Intake and Output for Last 24 Hours 06/20/20 06/21/20 06/22/20 23:59 23:59 23:59 Intake Total 393.5 / 393.5 440 / 440 Output Total 625 / 625 Balance 393.5 / 393.5 -185 / -185 General: Alert, Oriented x3, Cooperative, No apparent distress, Well developed, Well nourished, - - No conversational dyspnea. Obese. HEENT: Atraumatic, PERRLA, EOMI, Normocephalic, - - No scleral icterus or injection noted Oral: Moist Mucosa, No Gingival or Mucosal Lesions/ Ulcerations, - - Mallampati 3 Neck: Supple, No JVD, No Nodes, Trachea Midline Lungs: Clear to auscultation, Normal air movement, No rhonchi, No wheeze, No rales, - - Symmetric expansion. Cardiovascular: Normal S1, Normal S2, No murmurs, No rub noted, No Gallop, Tachycardic Abdomen: Bowel Sounds Present, Soft, Non Tender, Non-Distended, Obese Extremities: No clubbing, No cyanosis, No edema Skin: No rashes, No breakdown Musculoskeletal: No Tenderness to Palpation of Joints or Extremities Lymphatic: No Cervical, Supraclavicular, or Inguinal Adenopathy Neurological: Cranial nerves II-XII grossly intact, Neuro grossly intact, Motor Exam 5/5 strength throughout Psych/Mental Status: Alert and oriented to time, place, person, mood and affect Laboratory Results 06/21/20 20:20: WBC 7.5, RBC 5.08, Hgb 15.1, Hct 47.3, MCV 93.1, MCH 29.7, MCHC 31.9 L, RDW Std Deviation 44.4 H, RDW Coeff of Scarlet 13.0, Plt Count 224, MPV 9.3, Immature Gran % (Auto) 0.800, Neut % (Auto) 56.8, Lymph % (Auto) 28.6, [place] % (Auto) 11.7 H, Eos % (Auto) 1.7, Baso % (Auto) 0.4, Absolute Neuts (auto) 4.3, Absolute Lymphs (auto) 2.15, Nucleated RBC % 0 06/21/20 20:20: Sodium 139, Potassium 4.7, Chloride 107, Carbon Dioxide 29.0, Anion Gap 3 L, BUN 15, Creatinine 1.03, Estim Creat Clear Calc 96.27, Est GFR (MDRD) Af Amer 99, Est GFR (MDRD) Non-Af 82, BUN/Creatinine Ratio 14.6, Glucose 94, Calcium 8.9, Troponin I 0.068 H 06/21/20 20:20: APTT 31.6 06/21/20 21:45: COVID-19 (JUAN) Negative 06/21/20 22:45: Miscellaneous Test Pending 06/21/20 22:45: Protein C Antigen Pending, Functional Protein C Pending, Prot C Funct Activity Pending, Antithrombin III Ag Pending, Func Antithrombin III Pending, Factor V Leiden Mutat Pending, Beta-2-GPI IgG Ab Pending, Beta-2-GPI IgA Ab Pending, Beta-2-GPI IgM Ab Pending, Anti-Cardiolipin IgG Ab Pending, Anti-Cardiolipin IgM Ab Pending, Factor II DNA Analysis Pending 06/21/20 22:45: Magnesium 1.9, Troponin I 0.789 H* 06/21/20 22:45: B-Natriuretic Peptide 3.9 06/21/20 22:45: Miscellaneous Test Cancelled 06/21/20 22:45: APTT 79.1 H 06/21/20 22:45: SARS-CoV-2 IgG Ab Pending 06/21/20 23:55: COVID-19 (JUAN) Not Detected 06/22/20 02:40: Troponin I 0.971 H* 06/22/20 06:25: APTT 65.9 H 06/22/20 06:50: WBC 10.3, RBC 4.69, Hgb 14.3, Hct 43.1, MCV 91.9, MCH 30.5, MCHC 33.2, RDW Std Deviation 43.6, RDW Coeff of Scarlet 13.0, Plt Count 198, MPV 9.4, Immature Gran % (Auto) 0.800, Neut % (Auto) 61.8, Lymph % (Auto) 25.1, [place] % (Auto) 10.1 H, Eos % (Auto) 1.8, Baso % (Auto) 0.4, Absolute Neuts (auto) 6.4, Absolute Lymphs (auto) 2.59, Nucleated RBC % 0 06/22/20 06:50: Sodium 140, Potassium 3.6, Chloride 105, Carbon Dioxide 28.0, Anion Gap 7, BUN 12, Creatinine 0.94, Estim Creat Clear Calc 105.48, Est GFR (MDRD) Af Amer 110, Est GFR (MDRD) Non-Af 91, BUN/Creatinine Ratio 12.7, Glucose 138 H, Calcium 8.0 L, Total Bilirubin 0.60, AST 22, ALT 30, Alkaline Phosphatase 65, Total Protein 6.3 L, Albumin 3.4, Globulin 2.9, Albumin/Globulin Ratio 1.2 Current Medications Acetaminophen (Acetaminophen 325 Mg Tablet) 650 mg PO Q6H PRN PRN PRN Reason: Pain Score 1-10/Temp > 100.7 F Al Hydroxide/Mg Hydroxide (Mag Hydrox/Al Hydrox/Simeth 30 Ml Udc) 30 ml PO Q6H PRN PRN PRN Reason: Gastric Burning Albuterol Sulfate (Albuterol 2.5 Mg/3 Ml Vial.Neb.) 2.5 mg INHALATION Q2H PRN PRN PRN Reason: Dyspnea, wheezing Famotidine (Famotidine 20 Mg Tablet) 20 mg PO BID [facility] Last Admin: 06/21/20 23:44 Dose: 20 mg Documented by: Guaifenesin (Guaifenesin 10 Ml Udc (200mg/10ml)) 10 ml PO Q4H PRN PRN PRN Reason: COUGH Heparin Sodium (Porcine) (Heparin Injection (Vial) 5,000 Unit/Ml Vial) 0 unit IV UD PRN; Protocol PRN Reason: dose adjustment Hydralazine HCl (Hydralazine 20 Mg/Ml Vial) 10 mg IV Q4H PRN PRN PRN Reason: SBP > 160 Sodium Chloride () 1,000 mls @ 100 mls/hr IV .Q10H [facility] Last Admin: 06/21/20 23:46 Dose: 100 mls/hr Documented by: Heparin Sodium/Dextrose () 25,000 units in 250 mls @ 17 mls/hr IV .[id number] [facility]; Protocol Last Admin: 06/21/20 23:48 Dose: 1,700 units/hr, 17 mls/hr Documented by: Sodium Chloride () 250 mls @ 15 mls/hr IV .[id number] PRN PRN Reason: Saline Flush Magnesium Hydroxide (Magnesium Hydroxide 30 Ml Udc) 30 ml PO DAILY PRN PRN PRN Reason: Constipation Melatonin (Melatonin 3 Mg Tablet) 3 mg PO QHS PRN PRN PRN Reason: INSOMNIA Morphine Sulfate (Morphine 2 Mg/Ml Syringe) 2 mg IV Q3H PRN PRN PRN Reason: Pain Score 6-10 Nortriptyline HCl (Nortriptyline 25 Mg Capsule) 50 mg PO TID [facility] Last Admin: 06/22/20 06:23 Dose: 50 mg Documented by: Ondansetron HCl (Ondansetron 4 Mg/2 Ml Vial) 4 mg IV Q8H PRN PRN PRN Reason: NAUSEA/VOMITING Oxycodone HCl (Oxycodone 5 Mg Tablet) 5 mg PO Q4H PRN PRN PRN Reason: Pain Score 4-5 Prochlorperazine Edisylate (Prochlorperazine 10 Mg/2 Ml Vial) 5 mg IV Q4H PRN PRN PRN Reason: Breakthrough Nausea/Vomiting Psyllium Hydrophilic Mucilloid (Psyllium 1 Packet) 1 packet PO DAILY PRN PRN PRN Reason: Constipation Senna/Docusate Sodium (Senna/Docusate Sodium 1 Tablet) 2 tablet PO BID PRN PRN PRN Reason: Constipation Sodium Chloride (0.9% Saline Lock 10 Ml Syringe) 10 - 40 ml IV UD PRN PRN Reason: SALINE FLUSH Last Admin: 06/21/20 23:44 Dose: 10 ml Documented by: Throat Lozenges (Benzocaine/Menthol 1 Lozenge) 1 lozenge MUCOUS MEM Q2H PRN PRN PRN Reason: SORE THROAT Clinical Impression(s) from Imaging Studies Chest X-Ray 06/21/20 20:35 IMPRESSION: Normal x-ray examination of the chest. Electronically Signed: Debra Hernandez MD at 21:22 EDT Tel , Service support , Chest CTA 06/21/20 20:50 IMPRESSION: 1. Extensive bilateral pulmonary emboli including saddle embolus. 2. Old granulomatous disease. Electronically Signed: Debra Hernandez MD at 21:26 EDT Tel , Service support , ADDENDUM: 06/21/20 2144 IMPRESSION: 1. Extensive bilateral pulmonary emboli including saddle embolus. 2. Old granulomatous disease. N.B. : The above information has been verbally conveyed by Debra Hernandez MD to Patricia Cuenca MD, on 06/21/2020 21:37:33 (ET). Electronically Signed: Debra Hernandez MD at 21:26 EDT Tel , Service support , Assessment/Plan Active and Suspected Problems (Last Reviewed 06/04/20 @ 14:08 by Radha Donovan UNLOADING CHECKER, UNLOADING CHECKER-C) Pulmonary emboli (Acute) RECOMMENDATIONS: 1. Continue heparin drip for now 2. Also will transition to 10 a inhibitor tomorrow 3. Await echocardiogram 4. Initiate baseline FERNANDO therapy 5. Encourage smoking cessation 6. Results of hypercoagulable work-up will have to be followed up as an outpatient 7. Okay to leave the intensive care unit from my perspective IMPRESSIONS: 1. Acute hypoxic respiratory insufficiency secondary to saddle PE with cor pulmonale Echocardiogram is currently pending, but given elevated troponin over the course of hospitalization, cor pulmonale is suspected. Continue with heparin drip for now. Likely transition to a 10 a inhibitor tomorrow. Patient has no history of hypercoagulable state. Patient does have a granuloma noted on CT of the chest, but no suspicious nodules or masses to suggest a concurrent malignancy. Anticipate 6 months of anticoagulation. Will need to follow-up with her coagulable work-up as an outpatient as this does take more time than the patient will likely be here. Patient does appear to be hemodynamically stable to transfer from the intensive care unit from my perspective. Echocardiogram may need to be repeated as an outpatient pending results of current echocardiogram 2. Fibromyalgia/anxiety/depression/bipolar/tobacco abuse/obesity/poorly compliant FERNANDO Complicates care, management, recovery and prognosis. Likely okay to continue with baseline medications from my perspective. Patient should be encouraged to use his FERNANDO therapy as desaturations and arrhythmias can be exacerbated with FERNANDO in the setting of acute PE. Inpatient E&M: 32038 Init Hosp L3
[2020-06-22] MEDS: 0.9% Normal Saline 1,000 ML 100 ML IV (07:30)
--- NOTE | 2020-06-22 07:33 | PCM.PN.HOSP ---
Patient Problems: Active and Suspected Problems (Last Reviewed 06/04/20 @ 14:08 by Radha Donovan AIR INTERCEPT CONTROLLER SUPERVISOR, AIR INTERCEPT CONTROLLER SUPERVISOR-C) Pulmonary emboli (Acute) Fatigue (Acute) neck and back pain (Acute) Right shoulder pain (Acute) Reason for Visit: Follow-up on acute massive PE Subjective: Patient was seen and examined. Denied any chest pain or dizziness or palpitations. He is not on oxygen. Objective: Physical exam: General: Alert, Oriented x3, Cooperative, No apparent distress, Well developed, obese HEENT: Atraumatic Oral: Moist Mucosa Neck: Supple Lungs: Diminished, no wheezes. Cardiovascular: HS I+II, regular, no murmurs Abdomen: Bowel Sounds Present, Soft, Non Tender Extremities: No edema Skin: No rashes, No breakdown Neurological: Grossly intact Psych/Mental Status: Appropriate Vitals/I&O's: Vital Signs Temp Pulse Resp BP Pulse Ox 97.1 F L 97 14 127/74 H 98 06/22/20 00:00 06/22/20 07:00 06/22/20 07:00 06/22/20 07:00 06/22/20 07:00 Oxygen Flow Rate (L/min) 2 Oxygen Delivery Method Nasal Cannula Weight: 127.097 kg Body Mass Index (BMI) 38.0 Intake and Output for Last 24 Hours 06/20/20 06/21/20 06/22/20 23:59 23:59 23:59 Intake Total 393.5 / 393.5 440 / 440 Output Total 625 / 625 Balance 393.5 / 393.5 -185 / -185 Laboratory Results 06/21/20 20:20: WBC 7.5, RBC 5.08, Hgb 15.1, Hct 47.3, MCV 93.1, MCH 29.7, MCHC 31.9 L, RDW Std Deviation 44.4 H, RDW Coeff of Scarlet 13.0, Plt Count 224, MPV 9.3, Immature Gran % (Auto) 0.800, Neut % (Auto) 56.8, Lymph % (Auto) 28.6, [place] % (Auto) 11.7 H, Eos % (Auto) 1.7, Baso % (Auto) 0.4, Absolute Neuts (auto) 4.3, Absolute Lymphs (auto) 2.15, Nucleated RBC % 0 06/21/20 20:20: Sodium 139, Potassium 4.7, Chloride 107, Carbon Dioxide 29.0, Anion Gap 3 L, BUN 15, Creatinine 1.03, Estim Creat Clear Calc 96.27, Est GFR (MDRD) Af Amer 99, Est GFR (MDRD) Non-Af 82, BUN/Creatinine Ratio 14.6, Glucose 94, Calcium 8.9, Troponin I 0.068 H 06/21/20 20:20: APTT 31.6 06/21/20 21:45: COVID-19 (JUAN) Negative 06/21/20 22:45: Miscellaneous Test Pending 06/21/20 22:45: Protein C Antigen Pending, Functional Protein C Pending, Prot C Funct Activity Pending, Antithrombin III Ag Pending, Func Antithrombin III Pending, Factor V Leiden Mutat Pending, Beta-2-GPI IgG Ab Pending, Beta-2-GPI IgA Ab Pending, Beta-2-GPI IgM Ab Pending, Anti-Cardiolipin IgG Ab Pending, Anti-Cardiolipin IgM Ab Pending, Factor II DNA Analysis Pending 06/21/20 22:45: Magnesium 1.9, Troponin I 0.789 H* 06/21/20 22:45: B-Natriuretic Peptide 3.9 06/21/20 22:45: Miscellaneous Test Cancelled 06/21/20 22:45: APTT 79.1 H 06/21/20 22:45: SARS-CoV-2 IgG Ab Pending 06/21/20 23:55: COVID-19 (JUAN) Not Detected 06/22/20 02:40: Troponin I 0.971 H* 06/22/20 06:25: APTT 65.9 H 06/22/20 06:50: WBC 10.3, RBC 4.69, Hgb 14.3, Hct 43.1, MCV 91.9, MCH 30.5, MCHC 33.2, RDW Std Deviation 43.6, RDW Coeff of Scarlet 13.0, Plt Count 198, MPV 9.4, Immature Gran % (Auto) 0.800, Neut % (Auto) 61.8, Lymph % (Auto) 25.1, [place] % (Auto) 10.1 H, Eos % (Auto) 1.8, Baso % (Auto) 0.4, Absolute Neuts (auto) 6.4, Absolute Lymphs (auto) 2.59, Nucleated RBC % 0 06/22/20 06:50: Sodium 140, Potassium 3.6, Chloride 105, Carbon Dioxide 28.0, Anion Gap 7, BUN 12, Creatinine 0.94, Estim Creat Clear Calc 105.48, Est GFR (MDRD) Af Amer 110, Est GFR (MDRD) Non-Af 91, BUN/Creatinine Ratio 12.7, Glucose 138 H, Calcium 8.0 L, Total Bilirubin 0.60, AST 22, ALT 30, Alkaline Phosphatase 65, Total Protein 6.3 L, Albumin 3.4, Globulin 2.9, Albumin/Globulin Ratio 1.2 Current Medications Acetaminophen (Acetaminophen 325 Mg Tablet) 650 mg PO Q6H PRN PRN PRN Reason: Pain Score 1-10/Temp > 100.7 F Al Hydroxide/Mg Hydroxide (Mag Hydrox/Al Hydrox/Simeth 30 Ml Udc) 30 ml PO Q6H PRN PRN PRN Reason: Gastric Burning Albuterol Sulfate (Albuterol 2.5 Mg/3 Ml Vial.Neb.) 2.5 mg INHALATION Q2H PRN PRN PRN Reason: Dyspnea, wheezing Famotidine (Famotidine 20 Mg Tablet) 20 mg PO BID [facility] Last Admin: 06/21/20 23:44 Dose: 20 mg Documented by: Guaifenesin (Guaifenesin 10 Ml Udc (200mg/10ml)) 10 ml PO Q4H PRN PRN PRN Reason: COUGH Heparin Sodium (Porcine) (Heparin Injection (Vial) 5,000 Unit/Ml Vial) 0 unit IV UD PRN; Protocol PRN Reason: dose adjustment Hydralazine HCl (Hydralazine 20 Mg/Ml Vial) 10 mg IV Q4H PRN PRN PRN Reason: SBP > 160 Sodium Chloride () 1,000 mls @ 100 mls/hr IV .Q10H [facility] Last Admin: 06/21/20 23:46 Dose: 100 mls/hr Documented by: Heparin Sodium/Dextrose () 25,000 units in 250 mls @ 17 mls/hr IV .[id number] [facility]; Protocol Last Admin: 06/21/20 23:48 Dose: 1,700 units/hr, 17 mls/hr Documented by: Sodium Chloride () 250 mls @ 15 mls/hr IV .[id number] PRN PRN Reason: Saline Flush Magnesium Hydroxide (Magnesium Hydroxide 30 Ml Udc) 30 ml PO DAILY PRN PRN PRN Reason: Constipation Melatonin (Melatonin 3 Mg Tablet) 3 mg PO QHS PRN PRN PRN Reason: INSOMNIA Morphine Sulfate (Morphine 2 Mg/Ml Syringe) 2 mg IV Q3H PRN PRN PRN Reason: Pain Score 6-10 Nortriptyline HCl (Nortriptyline 25 Mg Capsule) 50 mg PO TID [facility] Last Admin: 06/22/20 06:23 Dose: 50 mg Documented by: Ondansetron HCl (Ondansetron 4 Mg/2 Ml Vial) 4 mg IV Q8H PRN PRN PRN Reason: NAUSEA/VOMITING Oxycodone HCl (Oxycodone 5 Mg Tablet) 5 mg PO Q4H PRN PRN PRN Reason: Pain Score 4-5 Prochlorperazine Edisylate (Prochlorperazine 10 Mg/2 Ml Vial) 5 mg IV Q4H PRN PRN PRN Reason: Breakthrough Nausea/Vomiting Psyllium Hydrophilic Mucilloid (Psyllium 1 Packet) 1 packet PO DAILY PRN PRN PRN Reason: Constipation Senna/Docusate Sodium (Senna/Docusate Sodium 1 Tablet) 2 tablet PO BID PRN PRN PRN Reason: Constipation Sodium Chloride (0.9% Saline Lock 10 Ml Syringe) 10 - 40 ml IV UD PRN PRN Reason: SALINE FLUSH Last Admin: 06/21/20 23:44 Dose: 10 ml Documented by: Throat Lozenges (Benzocaine/Menthol 1 Lozenge) 1 lozenge MUCOUS MEM Q2H PRN PRN PRN Reason: SORE THROAT STROKE Vital Signs/Narrative: Vital Signs Pulse Resp BP Pulse Ox 06/22/20 07:00 97 14 127/74 H 98 06/22/20 06:00 101 H 21 H 119/80 97 06/22/20 05:00 105 H 23 H 128/83 H 99 06/22/20 04:00 104 H 19 H 125/91 H 100 06/22/20 03:59 103 H Medical Necessity - Tobacco Use Smoking Status: Current every day smoker Tobacco Use: Cigarettes Assessment/Plan All Active Problems (Last Reviewed 06/04/20 @ 14:08 by Radha Donovan AIR INTERCEPT CONTROLLER SUPERVISOR, AIR INTERCEPT CONTROLLER SUPERVISOR-C) Pulmonary emboli (Acute) History of cholecystectomy (Resolved) History of tooth extraction (Resolved) Vitamin D deficiency (Acute) Microscopic colitis (Acute) Fatigue (Acute) Shoulder pain (Acute) Difficulty balancing (Acute) Limb weakness (Acute) neck and back pain (Acute) Right shoulder pain (Acute) Folliculitis (Acute) 1. Acute extensive bilateral, saddle PE, on heparin drip Unclear exact etiology; W originated from right leg but will hold off on ordering Doppler ultrasound of leg as it will not affect management Continue on heparin drip, follow-up on 2D echo, switch to Xarelto or Eliquis in a.m. 2. Nicotine dependence, advised to quit, will continue on replacement 3. Fibromyalgia/anxiety/depression/bipolar 4. Obesity, BMI 38.0, lifestyle modification recommended 5. FERNANDO, continue CPAP 6. DVT PPx- Heparin SC Inpatient E&M: 94010 Subs Hosp L3
[2020-06-22] MEDS: 0.9% Saline Lock 10 ML Syringe IV (08:16)
--- NOTE | 2020-06-22 10:05 | CASEMGMT ---
MAYTE MCCAULEY assessment: Face to Face with patient for initial transition planning/care coordination assessment. MAYTE MCCAULEY introduced self and role at [facility], pt voices understanding and consents to assessment. Pt is sitting up in bed in no distress on room air. Pt is A/Ox4 and answers all questions appropriately. Care providers, pharmacy, and demographics verified. 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 Preferred [facility]acy: [facility] Insurance: [facility] Prescription Benefit: [facility] Living Will/HPOA: Pt states does not have LW/HPOA and declined AD info. LNOK: [place] Kam, daughter Living Arrangements: Pt states lives alone in 1 story apt with 3 steps in and states no concerns at home. Pt states is independent with ADL's. Transportation: Pt states does not have a vehicle but walks where he needs to go or takes a taxi. Pt states no transportation concerns. DME/HHC: Pt states has a cpap thru [employer] and states no need for any further DME. Pt states no hx of HHC or SNF in the past. Pt states no concerns with going home at time of discharge. Pt works apartment leasing consultant. Pt states smokes about a 1/2pack/day and rarely drinks ETOH. Pt states no further concerns/needs. CM to follow for anti-coagulant coverage/co-pay and any further discharge planning/needs. Advised pt to ask for CM if any further questions/concerns/needs arise, voices understanding. Pt Goal: Home Plan: [place] MAYTE MCCAULEY
[2020-06-22] MEDS: Famotidine 20 MG Tablet PO ×2 (10:39→22:18)
--- NOTE | 2020-06-22 12:06 | NURSING ---
report called to PCU, Francine HU. to PCU 126 per WC, ICU staff in attendance
[2020-06-22] MEDS: HEPARIN/D5w 25,000 UNITS 25,000 UNITS/250 ML IV.SOLN. 17 UNITS IV (14:52)
[2020-06-23] MEDS: Nortriptyline 25 MG Capsule 50 MG PO (06:12)
[2020-06-23 06:59] VITALS: PULSE 75
[2020-06-23 07:22] VITALS: O2SAT 92
[2020-06-23 07:35] LABS: Partial Thromboplast Time 61.8 Seconds (24.1-36.2)
[2020-06-23] MEDS: Famotidine 20 MG Tablet PO (08:46)
[2020-06-23 08:54] VITALS: O2SAT 90; O2SAT 94
[2020-06-23 10:30] VITALS: BP 114/70; PULSE 91; RESP 20; TEMP 36.4; O2SAT 99
--- NOTE | 2020-06-23 10:47 | PCM.PN.INT ---
Subjective Subjective: Patient did okay overnight. Patient continues to report dyspnea on exertion, but has been tolerating room air. No bleeding complications have been reported such as epistaxis, hemoptysis or melena. Objective Data Objective Data Vital Signs: Vital Signs Temp Pulse Resp BP Pulse Ox 36.4 C L 91 20 H 114/70 99 06/23/20 10:30 06/23/20 10:30 06/23/20 10:30 06/23/20 10:30 06/23/20 10:30 Oxygen Flow Rate (L/min) 2 Oxygen Delivery Method Room Air Weight: 127.097 kg Body Mass Index (BMI) 38.0 Intake & Output: Intake and Output for Last 24 Hours 06/21/20 06/22/20 06/23/20 23:59 23:59 23:59 Intake Total 393.5 / 393.5 2995.33 / 2995.33 250 / 250 Output Total 1475 / 1475 Balance 393.5 / 393.5 1520.33 / 1520.33 250 / 250 Lab / Micro Data Attestation: I reviewed the patient's lab results. Result Diagrams: 06/22/20 06:50 06/22/20 06:50 Labs: Laboratory Results - last 24 hr 06/22/20 06/23/20 12:35 06:26 APTT 62.0 H 61.8 H Radiography Diagnostic Testing: Radiology Impression Echocardiogram 06/21/20 22:06 Interpretation Summary The study was technically difficult. Left ventricular systolic function is normal. The estimated ejection fraction is 60 %. Septal bounce. Trivial mitral valve insufficiency. Mild tricuspid valve insufficiency. Right ventricular systolic pressure estimated to be 36 mmHg. Transmitral doppler flow suggestive of impaired relaxation of left ventricle Ordering Physician: France Freire Referring Physician: Elliott Urbina Performed By: Guicho Corona RCS Rhythm Strip Rhythm Strip: Sinus Tach Rate: 96 Physical Exam Const alert, oriented x3 and no apparent distress General Appearance: cooperative and well developed; Negative for in distress or ill appearing HEENT normocephalic, head/scalp atraumatic and moist oral mucous membranes HEENT Narrative: Carotid posterior pharynx Eyes PERRL, EOMs intact bilaterally and conjunctivae normal Neck full ROM Lymph Lymphatic: no lymphadenopathy noted Resp normal respiratory effort and no use of accessory muscles Effort and Inspection: able to speak in complete sentences; Negative for actively coughing, uses accessory muscles or prolonged expiratory phase Auscultation: clear to auscultation bilaterally; Negative for rales, rhonchi or wheezes Cardio regular rate, regular rhythm, S1 normal heart sound, S2 normal heart sound, no murmurs, no rub, no gallops and no JVD GI normal to inspection, nondistended, normoactive bowel sounds Extremity no clubbing, cyanosis or edema Skin no rashes or lesions noted Neuro oriented x3, CN's II-XII intact bilaterally and moves all extremities Psych cooperative Assessment & Plan Assessment/Plan (1) Pulmonary emboli: Status: Acute Code(s): I26.99 - Other pulmonary embolism without acute cor pulmonale Qualifiers: Pulmonary embolism type: saddle Chronicity: acute Acute cor pulmonale presence: with acute cor pulmonale Qualified Code(s): I26.02 - Saddle embolus of pulmonary artery with acute cor pulmonale (2) Tobacco use: Status: Chronic Code(s): Z72.0 - Tobacco use (3) FERNANDO (obstructive sleep apnea): Status: Chronic Code(s): G47.33 - Obstructive sleep apnea (adult) (pediatric) (4) BMI 38.0-38.9,adult: Status: Chronic Code(s): Z68.38 - Body mass index [BMI] 38.0-38.9, adult (5) Sleep apnea: Status: Chronic Code(s): G47.30 - Sleep apnea, unspecified Qualifiers: Sleep apnea type: obstructive Qualified Code(s): G47.33 - Obstructive sleep apnea (adult) (pediatric) (6) Bipolar 1 disorder, depressed: Status: Chronic Code(s): F31.9 - Bipolar disorder, unspecified (7) Fibromyalgia: Status: Chronic Code(s): M79.7 - Fibromyalgia Plan: RECOMMENDATIONS: 1. Okay to transition to 10 a inhibitor from heparin drip 2. Walking oximetry prior to discharge 3. Encourage baseline FERNANDO therapy and smoking cessation 4. Okay to discharge from a pulmonary perspective if able to tolerate room air on ambulation 5. Follow-up with nurse practitioner in 4 to 6 weeks following discharge 6. Results of hypercoagulable work-up will have to be followed up as an outpatient 7. Likely not necessary to repeat echocardiogram IMPRESSIONS: 1. Acute hypoxic respiratory insufficiency secondary to saddle PE with cor pulmonale Echocardiogram did not show significant pulmonary hypertension, but this may underestimate presentation as patient was on anticoagulation for approximate 24 hours before echocardiogram was obtained. However, given relatively controlled pulmonary artery pressures, echocardiogram likely does not need to be repeated. Patient should have a walking oximetry prior to discharge. If able to tolerate room air, can discharge from a pulmonary perspective. Patient will need anticoagulation for the next 6 months. Patient should follow-up with nurse practitioner in 4 to 6 weeks. Outpatient follow-up with hypercoagulable panel will be necessary prior to cessation of anticoagulation. 2. Fibromyalgia/anxiety/depression/bipolar/tobacco abuse/obesity/poorly compliant FERNANDO Complicates care, management, recovery and prognosis. Likely okay to continue with baseline medications from my perspective. Patient should be encouraged to use his FERNANDO therapy as desaturations and arrhythmias can be exacerbated with FERNANDO in the setting of acute PE. Inpatient E&M: [id number] [facility] Hosp L2
--- NOTE | 2020-06-23 11:14 | DS.PCM_ITS ---
Providers Date of Admission: 06/21/20 Primary Care Physician: Dr. Elliott Urbina MD Consultations 06/21/20 22:06 Physician Consult Routine Consulting Provider: Niko Hastings Consulted Physician Type:: Feed Crusher Reason for Consult: Saddle PE MD Notified: Yes Date Notified:: 06/21/20 Time Notified: 21:30 Method of Notification:: cortext Reason For Visit: ACUTE SADDLE PE, HYPOXIA Diagnosis Discharge Diagnosis (1) Pulmonary emboli: Status: Acute Code(s): I26.99 - Other pulmonary embolism without acute cor pulmonale Qualifiers: Acute cor pulmonale presence: with acute cor pulmonale Chronicity: acute Pulmonary embolism type: saddle Qualified Code(s): I26.02 - Saddle embolus of pulmonary artery with acute cor pulmonale (2) Tobacco use: Status: Chronic Code(s): Z72.0 - Tobacco use (3) FERNANDO (obstructive sleep apnea): Status: Chronic Code(s): G47.33 - Obstructive sleep apnea (adult) (pediatric) (4) BMI 38.0-38.9,adult: Status: Chronic Code(s): Z68.38 - Body mass index [BMI] 38.0-38.9, adult (5) Sleep apnea: Status: Chronic Code(s): G47.30 - Sleep apnea, unspecified Qualifiers: Sleep apnea type: obstructive Qualified Code(s): G47.33 - Obstructive sleep apnea (adult) (pediatric) (6) Bipolar 1 disorder, depressed: Status: Chronic Code(s): F31.9 - Bipolar disorder, unspecified (7) Fibromyalgia: Status: Chronic Code(s): M79.7 - Fibromyalgia Medications at Discharge Home Medications cholecalciferol (vitamin D3) 125 mcg (5,000 unit) capsule 5,000 unit PO DAILY 01/23/18 nortriptyline 50 mg PO TID 06/21/20 apixaban [Eliquis] 5 mg PO BID #60 tab 06/23/20 apixaban [Eliquis] 10 mg PO BID #14 tab 06/23/20 Hospital Course Operations None Procedures 2-D Echocardiogram Summary of Care Provided Minutes Spent on Discharge: 40 Hospital Course: 50-year-old male with past medical history of smoking who presented with shortness of breath 1 hour prior to arrival. He denied any chest pain. He was taking out trash at that time. He had noted that his right lower leg had been swollen for about a month. He denied any long distance travel. Patient's vitals in the ED were stable. His labs were unremarkable. Troponins minimally elevated. CTA of the chest showed bilateral extensive PEs with saddle embolus. His EKG showed evidence of sinus tachycardia with no ischemia. Patient was admitted to the ICU and started on heparin drip. Feed Crusher was consulted. He continued to improve without use of oxygen. He was transferred out of the ICU to the PCU and transition to [facility]. He continued to be stable. He had a 2D echo done which showed EF of 60%, RVSP 36, impaired relaxation of the left ventricle. Patient was evaluated for oxygen at discharge and did not qualify. He will follow-up with a psych social worker in the outpatient. Physical Exam Narrative General: Alert, Oriented x3, Cooperative, No apparent distress, Well developed, obese HEENT: Atraumatic Oral: Moist Mucosa Neck: Supple Lungs: Diminished, no wheezes. Cardiovascular: HS I+II, regular, no murmurs Abdomen: Bowel Sounds Present, Soft, Non Tender Extremities: No edema Skin: No rashes, No breakdown Neurological: Grossly intact Psych/Mental Status: Appropriate ABG / Lab / Microbiology Data Result Diagrams: 06/22/20 06:50 06/22/20 06:50 Laboratory: Laboratory Results - last 24 hr 06/22/20 06/23/20 12:35 06:26 APTT 62.0 H 61.8 H Radiography Diagnostic Testing: Radiology Impression Echocardiogram 06/21/20 22:06 Interpretation Summary The study was technically difficult. Left ventricular systolic function is normal. The estimated ejection fraction is 60 %. Septal bounce. Trivial mitral valve insufficiency. Mild tricuspid valve insufficiency. Right ventricular systolic pressure estimated to be 36 mmHg. Transmitral doppler flow suggestive of impaired relaxation of left ventricle Ordering Physician: France Freire Referring Physician: Elliott Urbina Performed By: Guicho Corona RCS Meaningful Use Info Meaningful Use Diagnoses (Choose all that apply): VTE VTE Anticoag overlap given w/in hospital stay or rx'd at dc?: Yes Pt receive overlap for 5 days?: No Reason overlap not ordered, prescribed, or given for 5 days: Procedure Not Indicated Discharge Plan Admission Admit Date/Time: 06/21/20 21:28 Primary Reason for Your Visit: Dyspnea Attending Provider: Ann Marie Simons Primary Care Provider: Elliott Urbina Consulting Providers: Niko Hastings Instructions Forms: Work / School Excuse Patient Instructions: Pulmonary Embolism Additional Instructions / Restrictions: Take note of changes to your medications. Watch out for evidence of bleeding was on blood thinners. Follow-up with your primary care doctor within 1 to 2 weeks. Discharge Orders/Prescriptions Prescriptions: New Eliquis 5 mg Tablet 10 mg PO BID Qty: 14 RF: 0 Eliquis 5 mg tablet 5 mg PO BID Qty: 60 RF: 0 Continued cholecalciferol (vitamin D3) 5,000 unit capsule 5,000 unit PO DAILY RF: 0 nortriptyline 50 MG capsule 50 mg PO TID RF: 0 Discontinued ibuprofen 600 mg tablet 600 mg PO TID PRN (Reason: Pain Score 1-10) 30 Days Qty: 90 RF: 0 Referrals: Elliott Urbina MD [Primary Care Provider] - (within 2 weeks ) Radha Donovan NP, PROTECTIVE SIGNAL OPERATOR-C [Nurse Practitioner] - (within 2 weeks ) Disposition Patient Disposition: Home, self care Inpatient E&M: [id number] [facility] Hosp
--- NOTE | 2020-06-23 11:43 | CASEMGMT ---
Pt to be dc'd on Eliquis. TC to [facility] in [place]. Spoke with pharmacist. No copay for patient.
[2020-06-23] MEDS: APIXABAN 5 MG TABLET 10 MG PO (12:02)
[2020-06-26 20:08] LABS: Protein C Antigen 117 % (60-150); Protein C, Functional 117 % (73-180)
[2020-06-26 20:26] LABS: Anti-Cardiolipin Ab, IgG, Qn < 9 GPL U/mL (0-14); Anti-Cardiolipin Ab, IgM, Qn 19 MPL U/mL (0-12); Anti-Thrombin 3 AG, Immunol 76 % (72-124); Antithrombin 3 Function 105 % (75-135); Beta-2-Glycoprotein I IgA <9 (0-25); Beta-2-Glycoprotein I IgG <9 (0-20); Beta-2-Glycoprotein I IgM 24 (0-32)
== END 2020-06-23 12:12 | disposition home or self-care (01) | DRG 134 ==
LOC: ED 21:16 → ICU 06-22 06:58 → PCU 06-22 12:06
PROVIDERS: Admitting Provider Family Medicine; Emergency Provider Emergency Medicine; PCP Family Medicine; Visit Provider Internal Medicine
DX: I26.02 Saddle embolus of pulmonary artery with acute cor pulmonale (principal); R09.02 Hypoxemia; M79.7 Fibromyalgia; G47.33 Obstructive sleep apnea (adult) (pediatric); M19.90 Unspecified osteoarthritis, unspecified site; E55.9 Vitamin D deficiency, unspecified; G47.00 Insomnia, unspecified; F31.30 Bipolar disorder, current episode depressed, mild or moderate severity, unspecified; F41.1 Generalized anxiety disorder; F17.210 Nicotine dependence, cigarettes, uncomplicated; E66.9 Obesity, unspecified; Z68.39 Body mass index [BMI] 39.0-39.9, adult; Z91.19 Patient's noncompliance with other medical treatment and regimen
CPT/HCPCS: 36415; 71045; 71275; 80048; 80053; 81240; 81241; 83735; 83880; 84484; 85025; 85300; 85301; 85302; 85303; 85730; 86146; 86147; 86769; 87635; 93005; 93306; 97802; 99251; 99285; J7030; Q9957; Q9967; A4216; G0463; U0002

== ENCOUNTER → 2020-11-04 08:20 | Outpatient (CLI) | payer MEDICAID, SELFPAY ==
[2020-11-04 08:22] LABS: Bacteria 0 SEEN /hpf (None Seen); Mucous, Urine 0 SEEN /hpf (<or=2+); Red Blood Cells-Urine 0 SEEN /hpf (0-5); Squamous Epithelial Cells - UA 0 SEEN /hpf (0-5); White Blood Cells 0 SEEN /hpf (0-5)
[2020-11-04 10:09] LABS: Absolute Lymphocyte Count 2.44 X10^3/uL (0.83-4.51); Absolute Neutrophil Count 3.9 X10^3/uL (2.0-7.7); Basophil# 0.04 X10^3/uL; Basophil% 0.5 % (0-1); Color, Urine Yellow (Yellow); Eosinophil# 0.15 X10^3/uL; Glucose, Dipstick Normal (Normal); Hematocrit 48.7 % (40-54); Ketone-Dipstick Negative (Negative); Leukocyte Esterase-Dipstick Negative /ul (Negative); Lymphocyte # 2.44 X10^3/ul (0.83-4.51); Lymphocyte % 32.8 % (19-41); Mean Corp Hgb Conc 32.9 g/dL (32-36); Mean Corpuscular Hgb 30.5 pg (27.0-32.0); Mean Corpuscular Volume 92.9 fL (80-94); Mean Platelet Vol. 9.8 fl (6.2-12.0); Monocyte# 0.86 X10^3/uL; Monocyte% 11.5 % (0-10); NRBC Flagged by Analyzer 0 % (0-5); Neutrophil % 52.4 % (47-70); Nitrite-Dipstick Negative (Negative); Occult Blood-Urine Negative /ul (Negative); Platelet Count 267 K/mm3 (150-450); Protein-Dipstick Negative (Negative); RBC Distribution Width CV 13.9 % (11.6-14.6); RBC Distribution Width SD 47.2 fl (35.1-43.9); Red Blood Count 5.24 M/mm3 (4.6-6.2); Urine Bilirubin Dipstick Negative (Negative); Urine Clarity Clear (Clear); Urine Urobilinogen Normal (Normal); Urine pH 6.5 (5.0 - 8.0); White Blood Count 7.5 K/mm3 (4.4-11.0)
[2020-11-04 10:24] LABS: ALB/GLOB Ratio 0.9 RATIO (0.9-2.4); AST(SGOT) 24 U/L (15-37); Alanine Aminotransfer ALT/SGPT 49 U/L (16-61); Albumin, Serum 3.5 g/dL (3.2-5.0); Alkaline Phosphatase 65 U/L (45-117); Anion Gap 2 (5-15); BUN 8 mg/dL (7-18); BUN/Creat Ratio 9.1 RATIO (10-20); Calcium,Total 8.8 mg/dL (8.5-10.1); Chloride 109 mmol/L (98-107); Creatinine, Serum 0.88 mg/dL (0.70-1.30); EST Glomerular Filtration Rate 98 mL/min (>60); Est Glom Filt Rate - Afr Amer 118 mL/min (>60); Globulin 3.7 g/dL (2.2-4.2); Glucose 119 mg/dL (74-106); Potassium 3.5 mmol/L (3.5-5.1); Protein, Total 7.2 g/dL (6.4-8.2); Sodium Level 140 mmol/L (136-145)
[2020-11-04 10:25] LABS: Vitamin D,25 Hydroxy 30.7 ng/mL
== END ==
PROVIDERS: PCP Family Medicine; Referring Provider Family Medicine; Visit Provider Family Medicine
DX: R73.09 Other abnormal glucose (principal); E55.9 Vitamin D deficiency, unspecified; Z72.0 Tobacco use
CPT/HCPCS: 36415; 80053; 81001; 82306; 83036; 85025

== ENCOUNTER → 2020-12-01 13:50 | Outpatient (CLI) | payer MEDICAID, SELFPAY | PROVIDERS: PCP Family Medicine; Referring Provider Family Medicine; Visit Provider Family Medicine | DX: R76.0 Raised antibody titer (principal) | CPT/HCPCS: 36415 ==

== ENCOUNTER 2021-04-06 15:46 | Outpatient (CLI) | payer MEDICAID, SELFPAY ==
--- NOTE | 2021-04-06 15:50 | RAD_ITS ---
STUDY: X-RAY CHEST REASON FOR EXAM: Male, 51 years old. CHEST PAIN SHORTNESS OF BREATH TECHNIQUE: XR Chest 2 Views COMPARISON: 4.25.21 FINDINGS: There is no demonstrated pleural abnormality. Stable right lung calcified granulomas. Normal size heart. Normal mediastinum and louis. Normal visualized pulmonary arteries. Normal visualized aortic arch and descending thoracic aorta. There are diffuse degenerative changes of the visualized thoracic spine. Normal visualized ribs, clavicles, and shoulders. There is no demonstrated abnormality of the visualized soft tissue structures of the upper abdomen. RAD/Chest PA and Lateral IMPRESSION: There are no acute findings. Electronically Signed: Tee Holm MD at 16:06 EST ,
[2021-04-06 15:53] LABS: Bacteria 0 SEEN /hpf (None Seen); Mucous, Urine 0 SEEN /hpf (<or=2+); Red Blood Cells-Urine 0 SEEN /hpf (0-5)
[2021-04-06 17:34] LABS: Color, Urine Yellow (Yellow); Glucose, Dipstick Normal (Normal); Ketone-Dipstick 50 mg/dl (Negative); Leukocyte Esterase-Dipstick 25 /ul (Negative); Nitrite-Dipstick Negative (Negative); Occult Blood-Urine Negative /ul (Negative); Protein-Dipstick 15 mg/dl (Negative); Urine Bilirubin Dipstick Negative (Negative); Urine Clarity Clear (Clear); Urine Urobilinogen Normal (Normal)
[2021-04-06 17:41] LABS: Absolute Lymphocyte Count 1.73 X10^3/uL (0.83-4.51); Absolute Neutrophil Count 4.7 X10^3/uL (2.0-7.7); Basophil# 0.05 X10^3/uL; Basophil% 0.7 % (0-1); Eosinophil# 0.19 X10^3/uL; Eosinophils% 2.5 % (0-5); Hematocrit 47.8 % (40-54); Hemoglobin 16.1 g/dL (13.0-16.5); Lymphocyte # 1.73 X10^3/ul (0.83-4.51); Lymphocyte % 23.2 % (19-41); Mean Corp Hgb Conc 33.7 g/dL (32-36); Mean Corpuscular Hgb 30.9 pg (27.0-32.0); Mean Corpuscular Volume 91.7 fL (80-94); Mean Platelet Vol. 9.8 fl (6.2-12.0); Monocyte% 10.7 % (0-10); NRBC Flagged by Analyzer 0 % (0-5); Neutrophil # 4.67 X10^3/uL (2.7-7.7); Neutrophil % 62.5 % (47-70); Platelet Count 287 K/mm3 (150-450); RBC Distribution Width CV 13.4 % (11.6-14.6); RBC Distribution Width SD 45.1 fl (35.1-43.9); Red Blood Count 5.21 M/mm3 (4.6-6.2); White Blood Count 7.5 K/mm3 (4.4-11.0)
[2021-04-06 17:46] LABS: Squamous Epithelial Cells - UA 0-5 SEEN /hpf (0-5); White Blood Cells 0-5 SEEN /hpf (0-5)
[2021-04-06 17:48] LABS: ALB/GLOB Ratio 1.1 RATIO (0.9-2.4); AST(SGOT) 30 U/L (15-37); Alanine Aminotransfer ALT/SGPT 45 U/L (16-61); Alkaline Phosphatase 78 U/L (45-117); Anion Gap 6 (5-15); BUN 15 mg/dL (7-18); BUN/Creat Ratio 14.2 RATIO (10-20); Calcium,Total 9.1 mg/dL (8.5-10.1); Chloride 106 mmol/L (98-107); Creatinine, Serum 1.06 mg/dL (0.70-1.30); EST Glomerular Filtration Rate 79 mL/min (>60); Est Glom Filt Rate - Afr Amer 96 mL/min (>60); Globulin 3.6 g/dL (2.2-4.2); Glucose 86 mg/dL (74-106); Protein, Total 7.6 g/dL (6.4-8.2); Sodium Level 138 mmol/L (136-145)
[2021-04-07 10:21] LABS: Vitamin D,25 Hydroxy 30.6 ng/mL
[2021-04-09 00:06] LABS: Dilute Prothrombin Time (dPT) 40.4 sec (0.0-47.6); Dilute Russell Viper Venom 43.2 sec (0.0-47.0); PTT-LA 34.8 sec (0.0-51.9); Thrombin Time 17.9 sec (0.0-23.0); dPT Confirm Ratio 1.07 Ratio (0.00-1.34)
[2021-04-09 14:35] LABS: Interpretation Comment: (.)
== END 2021-04-06 23:59 | disposition home or self-care (01) ==
LOC: MTLAB 15:48
PROVIDERS: PCP Family Medicine; Referring Provider Family Medicine; Visit Provider Family Medicine
DX: R06.02 Shortness of breath (principal); F17.210 Nicotine dependence, cigarettes, uncomplicated; E55.9 Vitamin D deficiency, unspecified; R76.0 Raised antibody titer
CPT/HCPCS: 36415; 71046; 80053; 81001; 82306; 85025

== ENCOUNTER 2021-04-27 11:58 | Outpatient (CLI) | payer MEDICAID, SELFPAY ==
--- NOTE | 2021-04-27 14:23 | PFTCOMP_ITS ---
COMPLETE PULMONARY FUNCTION TEST INTERPRETATION Brief HPI: Patient is a 51 year old male, currently under the care of Dr. Urbina, who presents to [facility] for complete pulmonary function tests secondary to diagnosis of dyspnea. Respiratory therapist reports good effort and reproducible results. Interpretation: Forced expiration spirometry shows no large airways obstructive ventilatory defect with an FEV1 of 88% predicted. There is no significant bronchodilator response by strict ATS criteria. Spirograms are of good quality and plateau slowly, indicating slowly emptying areas of the lungs. The respiratory flow volume loop shows a normal pattern. Lung volumes by body plethysmography show an elevated total lung capacity at 8.51 L, 116% predicted. All other lung volumes are increased symmetrically. Diffusion capacity by carbon monoxide is decreased at 59% predicted. The airway resistance is normal. No previous pulmonary function tests were available for review. Impression: Isolated reduction in diffusion capacity with some subtle findings of possible concomitant small airways disease
== END 2021-04-27 23:59 | disposition home or self-care (01) ==
LOC: CVS 12:00
PROVIDERS: PCP Family Medicine; Referring Provider Family Medicine; Visit Provider Family Medicine
DX: R06.02 Shortness of breath (principal)
CPT/HCPCS: 94060; 94726; 94729

== ENCOUNTER 2021-05-18 14:58 | Outpatient (CLI) | payer MEDICAID, SELFPAY ==
--- NOTE | 2021-05-18 15:01 | ECHOD_ITS ---
Reason For Study: SOB Procedure This was a 2D Doppler, Color Flow transthoracic echocardiogram. The study was technically difficult. Exam performed in department. Left Ventricle Normal LV size. Left ventricular systolic function is normal. The estimated ejection fraction is 55 %. Transmitral doppler flow suggestive of impaired relaxation of left ventricle. No regional wall motion abnormalities noted. Right Ventricle Normal RV size. Normal systolic function. Atria Normal left atrium. Normal right atrium. No doppler evidence for ASD. Mitral Valve There is no mitral annular calcification. Normal mitral valve. Trivial mitral valve insufficiency. Tricuspid Valve Normal tricuspid valve. Trivial tricuspid valve insufficiency. Right ventricular systolic pressure estimated to be 24 mmHg. Aortic Valve The aortic valve is not well visualized. Pulmonic Valve The pulmonic valve is not well visualized. Great Vessels The aortic root is not well visualized. Pericardium/Pleural No pericardial effusion. MMode/2D Measurements & Calculations LVIDd: 5.0 cm IVSd: 0.99 cm LAV(MOD-bp): 40.0 ml LVIDs: 3.5 cm LVPWd: 0.90 cm LAV(MOD-bp) Indexed: 15.6 ml/m2 RVDd: 3.2 cm FS: 31.1 % LAV(MOD-sp2): 36.1 ml LAV(MOD-sp4): 41.7 ml SV(MOD-sp4): 56.1 ml SV(sp4-el): 60.7 ml LVAd ap4: 33.3 cm2 LVLd ap4: 9.1 cm EDV(MOD-sp4): 100.1 ml EDV(sp4-el): 104.1 ml LVAs ap4: 19.2 cm2 LVLs ap4: 7.2 cm ESV(MOD-sp4): 44.1 ml ESV(sp4-el): 43.4 ml EF(MOD-sp4): 56.0 % EF(sp4-el): 58.3 % LA A4 area: 16.6 cm2 LA dimension(2D): 3.4 cm RA A4 area: 14.9 cm2 Time Measurements MV dec time: 0.28 sec Doppler Measurements & Calculations MV E max cody: 73.6 cm/sec Lat Peak E' Cody: 12.3 cm/sec Med Peak E' Cody: 8.5 cm/sec MV A max cody: 81.7 cm/sec E/E' lat: 6.0 E/E' med: 8.6 MV E/A: 0.90 Ao V2 max: 137.5 cm/sec LV V1 max: 121.5 cm/sec PA V2 max: 95.7 cm/sec Ao max P.6 mmHg LV V1 max P.9 mmHg TR max cody: 226.9 cm/sec TR max P.6 mmHg ECHO/Echo Complete Interpretation Summary The study was technically difficult. Left ventricular systolic function is normal. The estimated ejection fraction is 55 %. Trivial mitral valve insufficiency. Trivial tricuspid valve insufficiency. Right ventricular systolic pressure estimated to be 24 mmHg. Transmitral doppler flow suggestive of impaired relaxation of left ventricle Ordering Physician: Elliott Urbina Referring Physician: Elliott Urbina Performed By: Allison Stanley RDCS
== END 2021-05-18 23:59 | disposition home or self-care (01) ==
LOC: CVS 14:59
PROVIDERS: PCP Family Medicine; Referring Provider Family Medicine; Visit Provider Family Medicine
DX: R06.02 Shortness of breath (principal)
CPT/HCPCS: 93306

== ENCOUNTER 2021-06-08 12:20 | Outpatient (CLI) | payer MEDICAID, SELFPAY ==
--- NOTE | 2021-06-08 13:20 | STRESSREP ---
Stress Test Report Date: 06-08-2021 Procedure: Exercise tolerance test Indications: Dyspnea on exertion Consent: Per the patient Procedure: The patient exercised on a Dmitry protocol for 50 seconds not completing stage I achieving a peak heart rate of 125 bpm (73% predicted maximal heart rate) with a peak blood pressure 124/82 mmHg and a peak MET capacity of approximately 3 MET's. The baseline ECG demonstrated normal sinus rhythm. The peak exercise ECG demonstrated somatic/motion artifact with no obvious ECG changes of the heart rate achieved. There were no cardiac dysrhythmias pretest, during exercise, or recovery. The functional capacity was considered decreased. The patient had complaint of chest discomfort/mild midsternal tightness during exercise or recovery. The examination was discontinued secondary to leg fatigue. Impression: 1. Technically inadequate (percent predicted maximal heart rate less than 85%) exercise tolerance test 2. Peak exercise ECG with somatic/motion artifact with no obvious ECG changes at the heart rate achieved 3. There were no cardiac dysrhythmias during exercise or recovery This note was generated with [email or web address] software. It may contain incorrect words, spelling, and punctuation that were not noted in checking the note before signing.
== END 2021-06-08 23:59 | disposition home or self-care (01) ==
LOC: CVS 12:21
PROVIDERS: PCP Family Medicine; Referring Provider Family Medicine; Visit Provider Family Medicine
DX: R06.02 Shortness of breath (principal)
CPT/HCPCS: 93017

== ENCOUNTER → 2021-08-17 | Outpatient (CLI) | payer MEDICAID, SELFPAY ==
[2021-08-17 18:25] LABS: ALB/GLOB Ratio 1.1 RATIO (0.9-2.4); AST(SGOT) 30 U/L (15-37); Alanine Aminotransfer ALT/SGPT 60 U/L (16-61); Albumin, Serum 3.5 g/dL (3.2-5.0); Alkaline Phosphatase 68 U/L (45-117); Anion Gap 5 (5-15); BUN 13 mg/dL (7-18); BUN/Creat Ratio 10.7 RATIO (10-20); Calcium,Total 8.5 mg/dL (8.5-10.1); Chloride 107 mmol/L (98-107); Creatinine, Serum 1.21 mg/dL (0.70-1.30); EST Glomerular Filtration Rate 68 mL/min (>60); Est Glom Filt Rate - Afr Amer 82 mL/min (>60); Globulin 3.3 g/dL (2.2-4.2); Glucose 95 mg/dL (74-106); Potassium 4.2 mmol/L (3.5-5.1); Protein, Total 6.8 g/dL (6.4-8.2); Sodium Level 140 mmol/L (136-145)
[2021-08-17 18:30] LABS: Vitamin D,25 Hydroxy 45.7 ng/mL
== END | disposition home or self-care (01) ==
LOC: MFPLAB 14:54
PROVIDERS: PCP Family Medicine; Referring Provider Family Medicine; Visit Provider Family Medicine
DX: E55.9 Vitamin D deficiency, unspecified (principal)
CPT/HCPCS: 36415; 80053; 82306

== ENCOUNTER → 2021-09-15 | Outpatient (CLI) | payer MEDICAID, SELFPAY ==
[2021-09-15 18:00] LABS: Anion Gap 5 (5-15); BUN 13 mg/dL (7-18); BUN/Creat Ratio 11.2 RATIO (10-20); Calcium,Total 9.1 mg/dL (8.5-10.1); Chloride 107 mmol/L (98-107); Creatinine, Serum 1.16 mg/dL (0.70-1.30); EST Glomerular Filtration Rate 71 mL/min (>60); Est Glom Filt Rate - Afr Amer 86 mL/min (>60); Glucose 76 mg/dL (74-106); Potassium 3.8 mmol/L (3.5-5.1); Sodium Level 140 mmol/L (136-145)
== END | disposition home or self-care (01) ==
LOC: LAB 15:10
PROVIDERS: PCP Family Medicine; Referring Provider Internal Medicine Cardiovascular Disease; Visit Provider Internal Medicine Cardiovascular Disease
DX: R06.02 Shortness of breath (principal); Z86.711 Personal history of pulmonary embolism
CPT/HCPCS: 36415; 80048

== ENCOUNTER 2021-11-30 17:52 | Emergency (ER) | payer MEDICAID, SELFPAY ==
[2021-11-30] VITALS (7 sets, daily range): BP systolic 132–145; BP diastolic 80–107; PULSE 103–122; RESP 15–21; TEMP 36.4–37.1; O2SAT 92–98; BMI 40.6
--- NOTE | 2021-11-30 18:06 | EKG12_ITS ---
Test Reason : DYSRHYTHMIA Blood Pressure : / mmHG Vent. Rate : 108 BPM Atrial Rate : 108 BPM P-R Int : 178 ms QRS Dur : 108 ms QT Int : 358 ms P-R-T Axes : 053 082 052 degrees QTc Int : 479 ms Sinus tachycardia Otherwise normal ECG Confirmed by ISMA REBOLLEDO, JOVANNA ([id number]), image editor ARSH VALDEZ ([id number]) on 12/02/2021 8:02:29 AM Referred By: NENITA Confirmed By:JOVANNA ASHBY MD
--- NOTE | 2021-11-30 18:08 | EX.ED.DYSGE1 ---
HPI History of Present Illness Chief Complaint: Flank Pain Informant: patient Onset/Context/Timing Onset: Days (3 to 4 days) Context: Gradual Onset Timing: Waxes and wanes Current Severity: Severe Maximum Severity: Severe Narrative Narrative: Patient presents with severe pain to the lateral portion of the right upper quadrant/lower ribs. He states pain started 3 to 4 days ago and has been progressively worsening. He thought he just pulled something in his ribs. Although triage note documents flank pain he denies any pain radiating down into his abdomen. He states that radiates up toward his right shoulder. He has had a prior cholecystectomy. [facility] Medical History Arthritis Bipolar 1 disorder, depressed Colitis COPD (chronic obstructive pulmonary disease) Difficulty balancing Fatigue Fibromyalgia GEOFF (generalized anxiety disorder) History of pulmonary embolism (06/21/20) Insomnia Limb weakness Microscopic colitis Shoulder pain Vitamin D deficiency Home Medications cholecalciferol (vitamin D3) 125 mcg (5,000 unit) capsule 5,000 unit PO DAILY 01/23/18 [History Last Taken Unknown] nortriptyline 50 mg capsule 50 mg PO TID 06/21/20 [History Last Taken Unknown] ascorbic acid (vitamin C) 500 mg capsule mg PO 09/08/21 [History Last Taken Unknown] aspirin 81 mg tablet,delayed release (Adult Aspirin Regimen) 81 mg PO DAILY 09/08/21 [History Last Taken Unknown] ibuprofen 600 mg tablet 600 mg PO TID PRN Pain 09/08/21 [History Last Taken Unknown] multivitamin 1 tab PO DAILY 09/08/21 [History Last Taken Unknown] losartan 50 mg tablet 50 mg PO DAILY #90 tabs 09/15/21 [Rx Last Taken Unknown] apixaban 5 mg (74 tabs) tablets in a dose pack (Eliquis DVT-PE Treat 30D Start) 5 mg PO BID #74 tabs 11/30/21 [Rx Last Taken Unknown] Allergy/AdvReac Type Severity Reaction Status Date / Time No Known Allergies Allergy Verified 11/30/21 17:53 Family History Mother Leukemia Brother Crohn's disease Sister Rheumatoid arthritis Father Hypertension BPPV (benign paroxysmal positional vertigo) Other No pertinent family history Surgical History History of cholecystectomy History of colonoscopy History of tooth extraction Social History Smoking Status: Current every day smoker tobacco type: cigarettes and e-cigarettes alcohol intake: never ROS ROS ED Constitutional Constitutional ED: Denies chills or fever(s) Eyes Eyes: Denies change in vision or discharge from eye(s) ENT ENT ED: Denies discharge from eye(s), rhinorrhea or sore throat Cardiovascular Cardiovascular: Reports chest pain; Denies palpitations Respiratory/Chest Respiratory/Chest: Denies cough or dyspnea Gastrointestinal Gastrointestinal: Reports abdominal pain; Denies diarrhea, nausea or vomiting Genitourinary Genitourinary ED: Denies difficulty urinating or dysuria Musculoskeletal Musculoskeletal: Denies back pain or extremity pain Integumentary Denies Abrasions or rash Neurologic Neurologic: Denies headache(s) or weakness Allergic/Immunologic Allergic/Immunologic ED: Denies lip swelling or urticaria EXAM Physical Exam Const Vital Signs: 11/30/21 17:53 11/30/21 18:28 11/30/21 18:28 Temperature 97.8 F Temperature Source Oral Pulse Rate 122 H 107 H Respiratory Rate 21 H 16 Respiratory Effort Normal Non-Labored Respiratory Pattern Normal Blood Pressure 145/107 H Blood Pressure Mean 119 Pulse Ox 98 97 Oxygen Delivery Method Room Air Room Air 11/30/21 18:32 11/30/21 19:03 11/30/21 19:03 Temperature 97.8 F 98.7 F Temperature Source Oral Temporal Pulse Rate 109 H 103 H 104 H Respiratory Rate 16 19 H Respiratory Effort Respiratory Pattern Blood Pressure 134/86 H 133/97 H Blood Pressure Mean 102 109 Pulse Ox 97 92 Oxygen Delivery Method Room Air 11/30/21 20:39 11/30/21 20:40 Temperature 97.5 F L Temperature Source Temporal Pulse Rate 107 H 106 H Respiratory Rate 15 Respiratory Effort Respiratory Pattern Blood Pressure 132/80 H Blood Pressure Mean 97 Pulse Ox 97 Oxygen Delivery Method Room Air Positive well nourished and well developed General Appearance ED: well developed and diaphoretic HEENT Reports normocephalic and head/scalp atraumatic Eyes PERRL and EOMs intact bilaterally Neck supple Chest Wall inspection of chest normal and palpation of chest normal Resp normal respiratory effort and clear to auscultation bilaterally Cardio regular rhythm Rate: tachycardic GI non-tender Palpation: soft Back/Spine General Back: CVA tenderness right Extremity normal to inspection Neuro oriented x3 and no sensory deficits noted Sensorium / Orientation: alert Motor Exam: strength 5/5 throughout Psych Mood & Affect: anxious Skin no rashes or lesions noted MDM MDM MDM Narrative Medical decision making narrative: Patient was given Dilaudid and Zofran for pain control. Patient placed on cardiac care nurse. EKG, chest x-ray, lab work obtained. Lab Data Attestation: I reviewed the patient's lab results. Labs: Laboratory Results - last 24 hr 11/30/21 11/30/21 11/30/21 18:15 18:15 18:15 WBC 22.0 H RBC 4.74 Hgb 14.9 Hct 43.9 MCV 92.6 MCH 31.4 MCHC 33.9 RDW Std Deviation 47.0 H RDW Coeff of Scarlet 13.9 Plt Count 304 MPV 8.9 Immature Gran % (Auto) 1.300 H Neut % (Auto) 79.6 H Lymph % (Auto) 9.5 L [place] % (Auto) 8.5 Eos % (Auto) 0.7 Baso % (Auto) 0.4 Absolute Neuts (auto) 17.5 H Absolute Lymphs (auto) 2.08 Nucleated RBC % 0 Differential Comment SEE COMMENT Diff Path Review May foll Platelet Estimate ADEQUATE RBC Morphology N CHROM Anisocytosis RARE Macrocytosis RARE D-Dimer Quant (PE/DVT) 2.53 H* Sodium 140 Potassium 2.9 L Chloride 106 Carbon Dioxide 23.0 Anion Gap 11 BUN 11 Creatinine 1.55 H Estim Creat Clear Calc 63.28 Est GFR (MDRD) Af Amer 61 Est GFR (MDRD) Non-Af 51 L BUN/Creatinine Ratio 7.1 L Glucose 85 Calcium 9.1 Total Bilirubin 1.10 H Direct Bilirubin 0.45 H AST 26 ALT 39 Alkaline Phosphatase 94 Troponin I High Sens 4 Total Protein 8.1 Albumin 4.0 Globulin 4.1 Lipase 293 Radiography Chest X-Ray - ED: 1 View, Read by ED Physician and Chronic Changes Diagnostic Testing: Clinical Impression(s) from Imaging Studies Chest CTA 11/30/21 19:14 IMPRESSION: 1. Diffuse pulmonary emboli involving all lobes of both lungs. There is no evidence of associated right heart strain. 2. Infiltrate at the right lung base. 3. Vague groundglass densities in the left upper lobe. 4. Old granulomatous disease. 5. No aortic dissection or aneurysm. N.B. : The above Results were Read Back by Santos Barnes DO to Patricia Cuenca MD, and understanding confirmed on 11/30/2021 21:06:53 (ET). Electronically Signed: Santos Barnes DO at 21:07 EDT Reading Location ID and State: [facility] / [place] Tel [phone], Service support , ADDENDUM: 11/30/212113 IMPRESSION: 1. Diffuse pulmonary emboli involving all lobes of both lungs. There is no evidence of associated right heart strain. 2. Infiltrate at the right lung base. 3. Vague groundglass densities in the left upper lobe. 4. Old granulomatous disease. 5. No aortic dissection or aneurysm. N.B. : The above Results were Read Back by Santos Barnes DO to Patricia Cuenca MD, and understanding confirmed on 11/30/2021 21:06:53 (ET). Electronically Signed: Santos Barnes DO at 21:07 EDT Reading Location ID and State: [facility] / [employer] Tel [phone], Service support , Abdomen/Pelvis CT 11/30/21 19:16 IMPRESSION: 1. Question right lower lobe pneumonia. 2. Nonobstructing right renal calculus. 3. Status post cholecystectomy. 4. Degenerative changes of the lumbar spine. 5. No evidence of right rib abnormality. Electronically Signed: Santos Barnes DO at 21:00 EDT Reading Location ID and State: [employer] / [employer] Tel [phone], Service support , Chest X-Ray 11/30/21 19:19 IMPRESSION: Limited inspiratory effort without other major interval change when compared to study of 04/06/2021 Electronically Signed: Santos Barnes DO at 18:38 EDT Reading Location ID and State: [facility] / [place] Tel [phone], Service support , EKG Initial EKG: Attestation: I personally reviewed and interpreted this EKG as follows: Interpretation: Sinus Tachycardia (Sinus tach at 108 with no acute ischemia.) Treatment and Re-Evaluation Narrative: CBC and chemistry studies reveal a white count of 22 with 79% neutrophils. D-dimer is elevated at 2.53. Chemistry studies reveal potassium of 2.9 with a creatinine 1.55. Troponin is normal at 4. LFTs reveal a slight bump in bilirubin levels, total bilirubin 1.1 and direct bilirubin 0.45. Lipase is normal. Patient sent for CTA of the chest as well as CT flank. CTA of the chest reveals diffuse pulmonary emboli to all lobes of both lungs. Infiltrate noted at the right lung base. CT flank reveals the right lung infiltrate but no other acute findings noted in the abdomen or pelvis. Patient has been given a dose of Eliquis. At this time heart rate is 104 and pulse ox is 96% on room air. There is no evidence of right heart strain on the CT scan. Although I discussed hospital admission given the large clot burden, patient is adamant that he wants to go home. He will be given a prescription for Eliquis. Return instructions are provided. Discharge Plan Triage Chief Complaint: Flank Pain Other Complaint: Abd Pain ED Provider: Patricia Cuenca Dx/Rx/DC Orders Clinical Impression: Pulmonary emboli Instructions: Embolism Pulmonary Dc Prescriptions: New Eliquis DVT-PE Treat 30D Start 5 mg (74 tabs) tablets,dose pack 5 mg PO BID Qty: 74 0RF No Action cholecalciferol (vitamin D3) 5,000 unit capsule 5,000 unit PO DAILY losartan 50 mg tablet 50 mg PO DAILY Qty: 90 3RF aspirin [Adult Aspirin Regimen] 81 mg tablet,delayed release (DR/EC) 81 mg PO DAILY ibuprofen 600 mg tablet 600 mg PO TID PRN (Reason: Pain) multivitamin Tablet 1 tab PO DAILY ascorbic acid (vitamin C) 500 mg capsule PO nortriptyline 50 MG capsule 50 mg PO TID Primary Care Provider: Elliott Urbina Referrals: Elliott Urbina MD [Primary Care Provider] - 1 Week Disposition Disposition: Home, Self Care
[2021-11-30] MEDS: HYDROmorphone 1 MG/ML Syringe IV (18:13)
[2021-11-30] MEDS: Ondansetron 4 MG/2 ML Vial IV (18:13)
[2021-11-30 18:24] LABS: Absolute Lymphocyte Count 2.08 X10^3/uL (0.83-4.51); Absolute Neutrophil Count 17.5 X10^3/uL (2.0-7.7); Basophil# 0.08 X10^3/uL; Basophil% 0.4 % (0-1); Eosinophil# 0.15 X10^3/uL; Eosinophils% 0.7 % (0-5); Hematocrit 43.9 % (40-54); Hemoglobin 14.9 g/dL (13.0-16.5); Lymphocyte # 2.08 X10^3/ul (0.83-4.51); Lymphocyte % 9.5 % (19-41); Mean Corp Hgb Conc 33.9 g/dL (32-36); Mean Corpuscular Hgb 31.4 pg (27.0-32.0); Mean Corpuscular Volume 92.6 fL (80-94); Mean Platelet Vol. 8.9 fl (6.2-12.0); Monocyte# 1.87 X10^3/uL; Monocyte% 8.5 % (0-10); NRBC Flagged by Analyzer 0 % (0-5); Neutrophil # 17.53 X10^3/uL (2.7-7.7); Neutrophil % 79.6 % (47-70); POSITIVE DIFFERENTIAL YES; Platelet Count 304 K/mm3 (150-450); RBC Distribution Width CV 13.9 % (11.6-14.6); Red Blood Count 4.74 M/mm3 (4.6-6.2)
[2021-11-30] MEDS: 0.9% Normal Saline 1,000 ML 150 ML IV (18:33)
[2021-11-30 18:46] LABS: D-Dimer Quantitative (DVT/PE) 2.53 FEU/ug/m (0.27-0.49)
[2021-11-30 18:47] LABS: Differential Indicated SCAN CRITERIA MET
[2021-11-30 18:55] LABS: AST(SGOT) 26 U/L (15-37); Alanine Aminotransfer ALT/SGPT 39 U/L (16-61); Alkaline Phosphatase 94 U/L (45-117); Anion Gap 11 (5-15); Anisocytosis RARE; BUN 11 mg/dL (7-18); BUN/Creat Ratio 7.1 RATIO (10-20); Bilirubin, Direct 0.45 mg/dL (0.00-0.30); Calcium,Total 9.1 mg/dL (8.5-10.1); Chloride 106 mmol/L (98-107); Creatinine, Serum 1.55 mg/dL (0.70-1.30); EST Glomerular Filtration Rate 51 mL/min (>60); Est Glom Filt Rate - Afr Amer 61 mL/min (>60); Estimated Creatinine Clearance 63.28 ml/min; Globulin 4.1 g/dL (2.2-4.2); Glucose 85 mg/dL (74-106); Lipase 293 U/L (73-393); Macrocytosis RARE; Platelet Estimate ADEQUATE (ADEQ); Potassium 2.9 mmol/L (3.5-5.1); Protein, Total 8.1 g/dL (6.4-8.2); Red Cell Morphology N CHROM NORMAL (NORM C&C); Sodium Level 140 mmol/L (136-145); Troponin-I HS 4 pg/mL (3.0-78.0)
--- NOTE | 2021-11-30 19:14 | CT_ITS ---
STUDY: CTA CHEST REASON FOR EXAM: Male, 51 years old. Severe right rib pain. Right upper quadrant pain. Elevated d-dimer. Smoking history. COPD. RADIATION DOSAGE (If Supplied By Facility): CTDIvol = ( 19.78 ) mGy, DLP = ( 539.80 ) mGycm TECHNIQUE: The examination was performed with the intravenous administration of IV 100mL Isovue-370. Post-processing of the angiographic images was performed, with multiplanar reformation and 3D reconstruction. Individualized dose optimization techniques were used for this CT. COMPARISON: CT of the abdomen and pelvis, 11/30/2021. Chest, 11/30/2021. CTA of the chest, 06/21/2020. FINDINGS: Normal enhancement of the main pulmonary artery and right and left pulmonary arteries. There are nonocclusive thrombus in tertiary branches of the left lower lobe pulmonary artery. Nonocclusive thrombus is also seen in secondary and tertiary pulmonary arteries extending to the upper lobe and lingula. Nonocclusive thrombus is also seen in peripheral branches of the right upper middle and lower lobes. Normal thoracic aorta and visualized great vessels. There is no demonstrated aortic dissection. Normal heart and pericardium. Normal mediastinum. There calcified lymph nodes right hilum. Normal visualized trachea and bronchi. The lungs are well expanded. There is a 9 mm calcified granuloma right upper lobe best seen on image 151 of series 4. There is vague patchy groundglass densities anteriorly in the right upper lobe in the same region there is atelectatic changes in the right lower lobe with questionable infiltrate in the posterior costophrenic angle. This may be just related to the pulmonary emboli. The lungs are otherwise clear. Normal pleura. No rib abnormality. There are mild degenerative changes of the thoracic spine. Normal osseous structures. Normal visualized upper abdomen. CT/CTA Chest W/WO Contrast IMPRESSION: 1. Diffuse pulmonary emboli involving all lobes of both lungs. There is no evidence of associated right heart strain. 2. Infiltrate at the right lung base. 3. Vague groundglass densities in the left upper lobe. 4. Old granulomatous disease. 5. No aortic dissection or aneurysm. N.B. : The above Results were Read Back by Santos Barnes DO to Patricia Cuenca MD, and understanding confirmed on 11/30/2021 21:06:53 (ET). Electronically Signed: Santos Barnes DO at 21:07 EDT Reading Location ID and State: [address] [place] [address] Tel [phone], Service support ,
--- NOTE | 2021-11-30 19:16 | CT_ITS ---
STUDY: CT ABDOMEN AND PELVIS WITHOUT CONTRAST REASON FOR EXAM: Male, 51 years old. Severe right rib pain. Right upper quadrant pain. Elevated d-dimer. History of COPD hypertension and prior smoking history. Status post cholecystectomy. RADIATION DOSAGE (If Supplied By Facility): CTDIvol = ( 23.51 ) mGy, DLP = ( 1415.86 ) mGycm TECHNIQUE: Transaxial images were obtained from the dome of the diaphragm to the symphysis pubis without oral contrast, and without intravenous contrast. Sagittal and coronal images were reconstructed. Individualized dose optimization techniques were used for this CT. COMPARISON: CTA of the chest, 11/30/2021. FINDINGS: Vague infiltrate in the posterior right lower lobe. The visualized portions of the heart are within normal limits. Calcified lymph nodes are seen in the right hilum Normal liver. There are surgical clips in the gallbladder fossa consistent with a prior cholecystectomy. Normal spleen. Normal pancreas. Normal bilateral adrenal glands. There is a nonobstructing 4 mm calcification lower pole calyx but otherwise normal right kidney. Mild stranding of the right perinephric fat. No hydronephrosis. Normal right ureter. Normal left kidney. Minimal stranding left perinephric fat. Normal left ureter Normal visualized stomach. Normal small intestine. Normal colon. The appendix is visualized and appears normal. Normal abdominal aorta. Normal inferior vena cava. Normal retroperitoneum. Normal urinary bladder. Normal size prostate. There are central calcifications. No pelvic lymphadenopathy. No free air or free fluid is seen within the cavity. Normal abdominal wall. Degenerative changes lumbar spine. There is no visualized rib fracture or soft tissue abnormality of the right chest wall. Mild degenerative changes of the hips. CT/Abdomen/Pelvis without Cont IMPRESSION: 1. Question right lower lobe pneumonia. 2. Nonobstructing right renal calculus. 3. Status post cholecystectomy. 4. Degenerative changes of the lumbar spine. 5. No evidence of right rib abnormality. Electronically Signed: Santos Barnes DO at 21:00 EDT ,
--- NOTE | 2021-11-30 19:19 | RAD_ITS ---
STUDY: X-RAY CHEST REASON FOR EXAM: Male, 51 years old. Left flank pain. TECHNIQUE: Single AP portable view of the chest. COMPARISON: 04/06/2021 FINDINGS: Limited inspiratory effort with minimal right basilar atelectasis. Stable calcified granuloma in the lateral right midlung. Lungs are otherwise clear. There is no demonstrated pleural abnormality. Normal size heart. Normal mediastinum and [place]. Normal visualized pulmonary arteries. Normal visualized aortic arch and descending thoracic aorta. There are diffuse degenerative changes of the visualized thoracic spine. There is degenerative osteoarthritis of the bilateral shoulders. There is no demonstrated abnormality of the visualized soft tissue structures of the upper abdomen. RAD/Chest 1 View (Portable) IMPRESSION: Limited inspiratory effort without other major interval change when compared to study of 04/06/2021 Electronically Signed: Santos Barnes DO at 18:38 EDT ,
[2021-11-30] MEDS: Potassium Chloride Oral Tablet 20 MEQ 40 MEQ PO (19:47)
[2021-11-30] MEDS: APIXABAN 5 MG TABLET 10 MG PO (20:38)
[2021-11-30 21:57] LABS: Mucous, Urine 0 SEEN /hpf (<or=2+); Red Blood Cells-Urine 0 SEEN /hpf (0-5)
[2021-11-30 22:00] LABS: Color, Urine Straw (Yellow); Glucose, Dipstick Normal (Normal); Ketone-Dipstick 15 mg/dl (Negative); Leukocyte Esterase-Dipstick 25 /ul (Negative); Nitrite-Dipstick Negative (Negative); Occult Blood-Urine Negative /ul (Negative); Protein-Dipstick Negative (Negative); Urine Bilirubin Dipstick Negative (Negative); Urine Clarity Clear (Clear); Urine Urobilinogen Normal (Normal); Urine pH 6.5 (5.0 - 8.0)
[2021-11-30 22:16] LABS: Bacteria RARE /hpf (None Seen); Squamous Epithelial Cells - UA 0-5 SEEN /hpf (0-5); White Blood Cells 0-5 SEEN /hpf (0-5)
[2021-12-01 12:54] LABS: Pathologist Review Reviewed
== END 2021-11-30 22:06 | disposition home or self-care (01) ==
PROVIDERS: Emergency Provider Emergency Medicine; PCP Family Medicine; Visit Provider Emergency Medicine
DX: I26.99 Other pulmonary embolism without acute cor pulmonale (principal); J44.9 Chronic obstructive pulmonary disease, unspecified; F31.9 Bipolar disorder, unspecified; Z86.711 Personal history of pulmonary embolism
CPT/HCPCS: 71045; 71275; 74176; 80048; 80076; 81001; 83690; 84484; 85025; 85379; 93005; 96361; 96374; 96375; 99284; J7030; Q9967; A4216; J2405